=== PATIENT | female | born 1945 | race Caucasian/White ===

== ENCOUNTER 2018-10-25 05:50 | Outpatient (CLI) | payer MEDICARE, MEDICAID ==
[~2018-10-25] VITALS: Ht 162.6 cm; Wt 81.6 kg
[~2018-10-25 05:50] MED LIST: AC500T PO; ASP81CT PO; ASPI-84; BNZT1T PO; CARB100T PO; CRB200T PO; DCS100C PO; DIAZ5TAB3 PO; DIVA500T15; DOCU100C PO; DZPM2T; FAMO20TA5 PO; FLUP1TAB PO; FURO40TA4 PO; GUAI100S PO; HYDR-2890 PO; IBP200T; KCL20TCR PO; KETO-22 PO; LEVO500T69 PO; LISI10TA PO; MAG355OR55 PO; MAGN-47 PO; MIRT15TA6 PO; MIRT30TA6 PO; MTP50T PO; MULT-974 PO; NF-CARBAMX PO; NTR.4SL SL; PANT40TA PO; POLY119P; PRO-STAT PO; PROLIXIN; RNT150T; SCR1T1; SUCR1TAB PO
[2018-10-25] MEDS ORDERED: FURO40TA4 PO (10:18)
[2018-10-25] MEDS ORDERED: LORA-405 PO (10:18)
[2018-10-25] MEDS ORDERED: IBUP-1773 PO (10:18)
[2018-10-25] MEDS ORDERED: FLUP1TAB PO (10:18)
[2018-10-25] MEDS ORDERED: ASPI-999 PO (10:18)
[2018-10-25] MEDS ORDERED: ACET-93 PO (10:18)
[2018-10-25] MEDS ORDERED: BENZ0.5T42 PO (10:18)
[2018-10-25] MEDS ORDERED: MENT118G TP (10:18)
[2018-10-25] MEDS ORDERED: CRAN500T2 PO (10:18)
[2018-10-25] MEDS ORDERED: DOCU100C37 PO (10:18)
[2018-10-25] MEDS ORDERED: MIRT15TA6 PO (11:08)
[2018-10-25] MEDS ORDERED: LISI10TA2 PO (11:08)
[2018-10-25] MEDS ORDERED: MAGN400O7 PO (11:08)
[2018-10-25] MEDS ORDERED: MAG30ORA2 PO (11:08)
[2018-10-25] MEDS ORDERED: MULT-178 PO (11:08)
[2018-10-25] MEDS ORDERED: METO50TA15 PO (11:08)
[2018-10-25] MEDS ORDERED: LORA10TA7 PO (11:08)
[2018-10-25] MEDS ORDERED: NITR0.4T39 SL (13:08)
[2018-10-25] MEDS ORDERED: MV-M1TAB38 PO (13:08)
[2018-10-25] MEDS ORDERED: METO-387 PO (13:08)
[2018-10-25] MEDS ORDERED: OMEG1CAP58 PO (13:08)
[2018-10-25] MEDS ORDERED: POTA-51 PO (13:08)
[2018-10-25] MEDS ORDERED: CARB100T48 PO ×2 (13:08)
== END 2018-10-25 14:41 | disposition home or self-care (01) ==
LOC: PREOP 05:50
PROVIDERS: ATTEND Specialist
DX: Z01.818 Encounter for other preprocedural examination (principal)

== ENCOUNTER 2018-10-27 07:42 | Day surgery (SDC) | payer MEDICARE, MEDICAID ==
[~2018-10-27] VITALS: Ht 162.6 cm; Wt 81.6 kg
[~2018-10-27 07:42] MED LIST changes: +ACET-93 PO; +ASPI-999 PO; +BENZ0.5T42 PO; +CARB100T48 PO; +CRAN500T2 PO; +DOCU100C37 PO; +IBUP-1773 PO; +LISI10TA2 PO; +LORA-405 PO; +LORA10TA7 PO; +MAG30ORA2 PO; +MAGN400O7 PO; +MENT118G TP; +METO-387 PO; +METO50TA15 PO; +MULT-178 PO; +MV-M1TAB38 PO; +NITR0.4T39 SL; +OMEG1CAP58 PO; +POTA-51 PO
--- OUTSIDE RECORDS SUMMARY | 2018-10-27 07:46 | XMS REPORT | Continuity of Care Document ---
Author Author [facility] Organization [facility] Address Unknown Phone Unavailable Care Team Providers Care Grievance Manager Name Role Phone WALDO EPPS DO PP Insurance Providers Payer Name Policy Number Subscriber Name Relationship Medicaid [place] [id number] Jill Oseguera Self / Same As Patient [employer] Medicare [id number] Jill Oseguera Self / Same As Patient Advance Directives Directive Response Recorded Date Advance Directives N 08/23/13 2:26pm Health Care Power of Physician Industrial Y 08/23/13 2:26pm Organ Donor N 08/23/13 2:26pm Problems No Known Problems or Medical conditions. Social History History Response Recorded Date/Time Alcohol Use Denies Use 08/23/13 2:26pm Recreational Drug Use N 08/23/13 2:26pm Sexually Transmitted Disease N 08/23/13 2 :26pm Allergies, Adverse Reactions, Alerts Allergen Type Severity Reaction Last Updated No Known Drug Allergies 11/03/08 [place] Allergy Mild 01/22/10 quetiapine Allergy Mild 01/22/10 Medications Medication Dose Units Route Sig Qty Days Levofloxacin (Levaquin 500 Mg) 1 Each PO DAILY 10 Diazepam (Diazepam 5 Mg) 5 Mg PO DAILY PRN Carbamazepine (Tegretol Xr) 300 Mg PO HS Lisinopril (Prinivil) 10 Mg PO DAILY Multivitamin (Multi Vitamin Daily) 1 Tab PO DAILY Famotidine (Pepcid) 20 Mg PO DAILY Aspirin (Baby Aspirin Chewable Tablet) 81 Mg PO DAILY Docusate Sodium (Colace) 100 Mg PO BID [Pro-Stat] 30 Ml PO HS Carbamazepine (Tegretol Xr) 100 Mg PO DAILY Mag Hydrox/Al Hydrox/Simeth (Mylanta Liq) 30 Ml PO Q4H PRN Nitroglycerin (Nitrostat) 0 SL PRN Magnesium Hydroxide (Milk Of Magnesia) 30 Ml PO BID PRN Acetaminophen (Tylenol) 1000 Mg PO Q6H PRN Guaifenesin (Robitussin) 10 Ml PO Q4H PRN Ketorolac Tromethamine (Toradol) 20 Mg PO UD PRN Mirtazapine (Mirtazapine 15 Mg) 15 Mg PO HS Sucralfate 1 G PO BID Pantoprazole Sodium 40 Mg PO DAILY Potassium Chloride (Klor-Con 20 Tab) 20 Meq PO BID Fluphenazine Hcl 2 Mg PO HS Docusate Sodium (Docusate Calcium) 100 Mg PO BID PRN Diazepam 2.5 Mg PO BID PRN Benztropine Mesylate (Cogentin Po) 1 Mg PO TID Metoprolol Tartrate (Metoprolol Tartrate 50 Mg) 50 Mg PO BID Furosemide 40 Mg PO DAILY Hydrocodone Bit/Acetaminophen (Hydrocodon-Acetaminophn 10-325) 1 Each PO PRN Sucralfate (Carafate) [Prolixin] Ibuprofen (Motrin) Polyethylene Glycol (Miralax Btl) Divalproex Sodium (Divalproex Sodium Er) Ranitidine HCl (Zantac 150 Mg) Immunizations Name Given Type Date of Pneumonia Vaccine 08/30/11 H Response Recorded Date/Time Status not known Unknown Results No Known Relevant Diagnostic Tests, Laboratory Data and/or Discharge Summary. Procedures Procedure Code Date ESOPHAGOGASTRODUODENOSCOPY [EGD] W/CLOSED BIOPSY 45.16 11/06/08 OTHER LOCAL DESTRUC SKIN 86.3 11/06/08 DEBRIDEMENT OF NAIL, NAIL BED OR NAIL FOLD 86.27 11/07/08 NONEXCIS DEBRID OF WOUND, INFECT, OR BURN 86.28 11/07/08 CYSTOSCOPY AND TREATMENT 17082 03/06/09 EXAM OF VAGINA W/SCOPE [id number] 03/06/09 DRAIN BL W/CATH INSERTION [id number] 01/29/10 CYSTOSCOPY 00476 01/29/10 Encounters Encounter Location Date/Time Departed Emergency Room [facility] 1:34pm Discharged Inpatient [facility] 12: 00am
[2018-10-27 08:05] VITALS: BP 188/89
[2018-10-27] MEDS: TETRACAINE 0.5% OPHTH SOLN 4 ML BTL (SINGLE DOSE ONLY) OU PRN ×4 (08:08→08:24)
[2018-10-27] MEDS: PHENYLEPHRINE 10% OPHTH (NEO-SYN) 5 ML BTL OU PRN ×3 (08:13→08:24)
[2018-10-27] MEDS: TROPICAMIDE 1% OPH SOLN (MYDRIACYL) 15 ML BTL OU PRN ×3 (08:13→08:24)
--- NOTE | 2018-10-27 09:02 | Ophthalmologist Pre-Op Note ---
Pre-Operative Progress Note H&P Reviewed The H&P was reviewed, patient examined and no changes noted. Date H&P Reviewed: Oct 27, 2018 Time H&P Reviewed: 09:02 Pre-Op Dx Secondary Cataract, Right Eye TWYLA LOZANO MD Oct 27, 2018 09:02
[2018-10-27 09:20] VITALS: BP 188/89
--- NOTE | 2018-10-27 09:37 | Ophthalmology Operative Report ---
YAG Capsulotomy PREOPERATIVE DIAGNOSIS: Secondary Cataract Right Eye POSTOPERATIVE DIAGNOSIS: Secondary Cataract Right Eye PROCEDURE: YAG Capsulotomy, right eye SURGEON: Jason Lozano ANESTHESIA: Topical anesthesia COMPLICATIONS: None ESTIMATED BLOOD LOSS: Minimal DESCRIPTION OF PROCEDURE: After proper informed consent was obtained, the patient's, a 73 female, right eye received one drop of Tropicamide and one drop of Tetracaine. The patient was then placed at the YAG laser and using a power of [3.1 ] millijoules and [ 26] bursts were used to fashion a central capsulotomy. The patient tolerated the procedure well without complications and the patient's pressure was [ 17] shortly after the laser. JASON LOZANO MD Oct 27, 2018 09:37
== END 2018-10-27 09:20 | disposition home or self-care (01) ==
LOC: SDC 07:42
PROVIDERS: ATTEND Specialist
DX: H26.491 Other secondary cataract, right eye (principal); H26.40 Unspecified secondary cataract; Z80.0 Family history of malignant neoplasm of digestive organs; I10 Essential (primary) hypertension; F31.9 Bipolar disorder, unspecified; G30.9 Alzheimer's disease, unspecified; E11.9 Type 2 diabetes mellitus without complications; G20 Parkinson's disease; F41.9 Anxiety disorder, unspecified; F25.9 Schizoaffective disorder, unspecified

== ENCOUNTER 2019-04-28 14:54 | Emergency (ER) | payer MEDICARE, MEDICAID ==
[~2019-04-28] VITALS: Ht 164.5 cm; Wt 95.7 kg
--- NOTE | 2019-04-28 15:15 | NUR ---
supra pubic placed by obie wade
[2019-04-28] MEDS ORDERED: ALPRAZolam 0.5 MG (XANAX) TAB PO SCH (15:30)
[2019-04-28] MEDS ORDERED: LIDOCAINE UROJET 2% GEL 10 ML PKG TOP ONE (15:30)
--- NOTE | 2019-04-28 15:32 | ED GU-Female ---
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 Timing/Duration: just prior to arrival Severity/Quality: moderate Location: unknown Activities at Onset: none Associated Symptoms: urinary frequency Allergies and Home Medications Allergies Coded Allergies: lithium (Unverified Allergy, Mild, 01/22/10) quetiapine (Unverified Allergy, Mild, 01/22/10) Home Medications Acetaminophen 500 Mg Tablet, 1,000 MG PO Q6H PRN for pain/temperature, (Reported) take 2 (500mg) tabs Aspirin 81 Mg Tab.chew, 81 MG PO DAILY, (Reported) Benztropine Mesylate 0.5 Mg Tablet, 0.5 MG PO DAILY, (Reported) Carbamazepine 100 Mg Tab.er.12h, 100 MG PO DAILY, (Reported) Carbamazepine 100 Mg Tab.er.12h, 300 MG PO HS, (Reported) take 3 (100mg) tabs Cranberry Extract Unknown Strength Tablet, 1 TAB PO TID, (Reported) Docusate Sodium 100 Mg Capsule, 100 MG PO BID, (Reported) Fluphenazine HCl 1 Mg Tablet, 1 MG PO HS, (Reported) Furosemide 40 Mg Tablet, 40 MG PO DAILY, (Reported) Ibuprofen 600 Mg Tablet, 600 MG PO Q8H PRN for PAIN, (Reported) Lisinopril 10 Mg Tablet, 10 MG PO DAILY, (Reported) Loratadine 10 Mg Tablet, 10 MG PO DAILY, (Reported) Lorazepam 1 Mg Tablet, 1 MG PO UD PRN for before catheter change, (Reported) Mag Hydrox/Al Hydrox/Simeth 30 Ml Oral.susp, 30 ML PO Q4H PRN for INDIGESTION, (Reported) Magnesium Hydroxide 400 Mg/5 Ml Oral.susp, 1,200 MG PO DAILY PRN for CONSTIPATION-1ST LINE, (Reported) Menthol 118 Ml Gel..ml., 4 ML TP Q6H PRN for pain in hips, (Reported) Metoprolol Succinate 25 Mg Tab.er.24h, 25 MG PO DAILY, (Reported) Metoprolol Tartrate 50 Mg Tablet, 50 MG PO BID, (Reported) Mirtazapine 15 Mg Tablet, 15 MG PO HS, (Reported) Multivitamin 1 Each Tablet, 1 EACH PO DAILY, (Reported) Mv-Mn/FA/Vit K/Lycop/Lut/Zeaxa 1 Each Tablet, 1 EACH PO DAILY, (Reported) Nitroglycerin 0.4 Mg Tab.subl, 0.4 MG SL UD PRN for CHEST PAIN, (Reported) [place]-3 Fatty Acids/Fish Oil 1 Each Capsule, 1,000 MG PO DAILY, (Reported) Potassium Chloride 20 Meq Tablet.er, 20 MEQ PO BID, (Reported) Patient Home Medication List Home Medication List Reviewed: Yes Review of Systems Review of Systems Constitutional: see HPI EENTM: see HPI Respiratory: no symptoms reported Cardiovascular: no symptoms reported Genitourinary: see HPI Musculoskeletal: no symptoms reported Skin: no symptoms reported Psychiatric/Neurological: No Symptoms Reported Endocrine: No Symptoms Reported Hematologic/Lymphatic: No Symptoms Reported Past Jmcdqoj-Atgiei-Nyotul Hx Patient Social History Alcohol Use: Denies Use Recreational Drug Use: No Smoking Status: Never a Smoker 2nd Hand Smoke Exposure: No Recent Foreign Travel: No Contact w/Someone Who Travel: No Recent Infectious Disease Expo: No Immunizations Up To Date Date of Pneumonia Vaccine: Aug 30, 2011 Past Medical History Surgeries: Yes (SUPRAPUBIC CATHETER PLACEMENT--OTHER SURGERIES ARE UNKNOWN) Respiratory: No Cardiac: Yes (VENTRICULAR TACHYCARDIA) Neurological: Yes (?MR?) Sexually Transmitted Disease: No UTI-Chronic Gastrointestinal: Yes (GASTRITIS) Gastroesophageal Reflux, Chronic Constipation Musculoskeletal: Yes (FREQUENT FALLS. CHRONIC GENERALIZED PAIN) Arthritis Endocrine: Yes Diabetes, Non-Insulin dep Cancer: No Psychosocial: Yes Anxiety, Bipolar, Schizophrenia Integumentary: No Blood Disorders: No Physical Exam Vital Signs Vital Signs - First Documented 04/28/19 15:06 Temp 98.1 Pulse 82 Resp 15 B/P (MAP) 149/97 (114) Pulse Ox 94 O2 Delivery Room Air Capillary Refill : Less Than 3 Seconds Height, Weight, BMI Height: 5'4.75" Weight: 211lbs. 0.0oz. 95.950411yb; BMI Method:Stated General Appearance: WD/WN, no apparent distress Gastrointestinal: normal bowel sounds, non tender, soft Neurologic/Psychiatric: alert, normal mood/affect, oriented x 3 Skin: normal color, warm/dry I was unable to replace a 16 or 18 or 14 Vietnamese suprapubic catheter. Per her request we then gave E alprazolam 0.5 mg for sedation. We also anesthetized the tract with your inject lidocaine. I then used the [place] sounds to dilate the tract was able to finally get a 12 Vietnamese Barbour catheter placed with return of about 200 mL of clear yellow urine. Progress/Results/Core Measures Suspected Sepsis Recent Fever Within 48 Hours: No Infection Criteria Present: None New/Unexplained Altered Menta: No Sepsis Screen: No Definite Risk SIRS Temperature:98.1 Pulse: 82 Respiratory Rate: 15 Blood Pressure 149 /97 Mean: 114 Results/Orders My Orders Orders - DEEPTHI LAN APRN Alprazolam Tablet (Xanax Tablet) (04/28/19 15:30) Lidocaine 2% (Urojet) (Xylocaine Urojet) (04/28/19 15:30) Medications Given in ED Current Medications Medications Dose Ordered Sig/Stanley Route Start Time Stop Time Status Last Admin Dose Admin Lidocaine HCl 10 ml ONCE ONCE TOP 04/28/19 15:30 04/28/19 15:31 DC 04/28/19 15:36 10 ML Vital Signs/I&O 04/28/19 15:06 Temp 98.1 Pulse 82 Resp 15 B/P (MAP) 149/97 (114) Pulse Ox 94 O2 Delivery Room Air Capillary Refill : Less Than 3 Seconds Blood Pressure Mean: 114 Departure Impression Primary Impression: suprapubic catheter replacement Disposition: 01 HOME, SELF-CARE Condition: Improved Departure-Patient Inst. Decision time for Depature: 15:47 Referrals: ANNEMARIE LOPEZ MD (PCP) Primary Care Physician Patient Instructions: Barbour Catheter, Female Add. Discharge Instructions: 1. Return to ER for any concerns 2. Follow-up with your doctor next week 3. All discharge instructions reviewed with patient and/or family. Voiced understanding. DEEPTHI LAN APRN April 28, 2019 15:32
[2019-04-28 15:56] VITALS: BP 149/97
== END 2019-04-28 15:55 | disposition home or self-care (01) ==
LOC: EDUNIT# 14:54 → ER 14:55
DX: T83.028A Displacement of other urinary catheter, initial encounter (principal); K21.9 Gastro-esophageal reflux disease without esophagitis; E11.9 Type 2 diabetes mellitus without complications; F41.9 Anxiety disorder, unspecified; F31.9 Bipolar disorder, unspecified; F20.9 Schizophrenia, unspecified; Z91.81 History of falling; Z87.19 Personal history of other diseases of the digestive system; Z88.8 Allergy status to other drugs, medicaments and biological substances; Z79.82 Long term (current) use of aspirin; Z98.890 Other specified postprocedural states; Z87.440 Personal history of urinary (tract) infections
CPT/HCPCS: 99283

== ENCOUNTER 2020-09-15 20:50 | Emergency (ER) | payer MEDICARE, MEDICAID ==
[~2020-09-15] VITALS: Ht 162 cm; Wt 70.0 kg
[~2020-09-15 20:50] MED LIST changes: -METO-387 PO; +MTP25TSR PO
[2020-09-15 21:11] LABS: BASOPHILS % (AUTO) 0 % (0-10); EOSINOPHILS # (AUTO) 0.2 10^3/uL (0.0-0.3); EOSINOPHILS % (AUTO) 3 % (0-10); HEMATOCRIT 38 % (35-52); HEMOGLOBIN 12.3 g/dL (11.5-16.0); LYMPHOCYTES % (AUTO) 19 % (12-44); MEAN CORPUSCULAR HEMOGLOBIN 30 pg (25-34); MEAN CORPUSCULAR HGB CONC 32 g/dL (32-36); MEAN CORPUSCULAR VOLUME 92 fL (80-99); MEAN PLATELET VOLUME 10.2 fL (9.0-12.2); MONOCYTES # (AUTO) 0.4 10^3/uL (0.0-1.0); MONOCYTES % (AUTO) 7 % (0-12); NEUTROPHILS # (AUTO) 3.8 10^3/uL (1.8-7.8); NEUTROPHILS % (AUTO) 71 % (42-75); PLATELET COUNT 208 10^3/uL (130-400); WHITE BLOOD COUNT 5.4 10^3/uL (4.3-11.0)
--- NOTE | 2020-09-15 21:13 | ED General ---
General Stated Complaint: FALL Source of Information: EMS Exam Limitations: No Limitations History of Present Illness Date Seen by Provider: Sep 15, 2020 Time Seen by Provider: 21:11 Initial Comments To ER by EMS from home [facility] with reports of a fall. She initially fell and she is not sure why but she did strike her head. She seemed t o be fine and she was taken to bed. Staff then entered the room and noticed her on the floor after an apparent unwitnessed fall. Upon EMS arrival she was unresponsive even to sternal rub. Didn't move any extremity. On the way here they state "a light switch turned on" and she is now talking and moving all extremities. Timing/Duration: 4-6 Hours Severity: Moderate Associated Systoms: Denies Symptoms Allergies and Home Medications Allergies Coded Allergies: lithium (Unverified Allergy, Mild, 01/22/10) quetiapine (Unverified Allergy, Mild, 01/22/10) Home Medications Acetaminophen 500 Mg Tablet, 1,000 MG PO Q6H PRN for pain/temperature, (Reported) take 2 (500mg) tabs Aspirin 81 Mg Tab.chew, 81 MG PO DAILY, (Reported) Benztropine Mesylate 0.5 Mg Tablet, 0.5 MG PO DAILY, (Reported) Carbamazepine 100 Mg Tab.er.12h, 100 MG PO DAILY, (Reported) Carbamazepine 100 Mg Tab.er.12h, 300 MG PO HS, (Reported) take 3 (100mg) tabs Cranberry Extract Unknown Strength Tablet, 1 TAB PO TID, (Reported) Docusate Sodium 100 Mg Capsule, 100 MG PO BID, (Reported) Fluphenazine HCl 1 Mg Tablet, 1 MG PO HS, (Reported) Furosemide 40 Mg Tablet, 40 MG PO DAILY, (Reported) Ibuprofen 600 Mg Tablet, 600 MG PO Q8H PRN for PAIN, (Reported) Lisinopril 10 Mg Tablet, 10 MG PO DAILY, (Reported) Loratadine 10 Mg Tablet, 10 MG PO DAILY, (Reported) Lorazepam 1 Mg Tablet, 1 MG PO UD PRN for before catheter change, (Reported) Mag Hydrox/Al Hydrox/Simeth 30 Ml Oral.susp, 30 ML PO Q4H PRN for INDIGESTION, (Reported) Magnesium Hydroxide 400 Mg/5 Ml Oral.susp, 1,200 MG PO DAILY PRN for CON STIPATION-1ST LINE, (Reported) Menthol 118 Ml Gel..ml., 4 ML TP Q6H PRN for pain in hips, (Reported) Metoprolol Succinate 25 Mg Tab.er.24h, 25 MG PO DAILY, (Reported) Metoprolol Tartrate 50 Mg Tablet, 50 MG PO BID, (Reported) Mirtazapine 15 Mg Tablet, 15 MG PO HS, (Reported) Multivitamin 1 Each Tablet, 1 EACH PO DAILY, (Reported) Mv-Mn/FA/Vit K/Lycop/Lut/Zeaxa 1 Each Tablet, 1 EACH PO DAILY, (Reported) Nitroglycerin 0.4 Mg Tab.subl, 0.4 MG SL UD PRN for CHEST PAIN, (Reported) [place]-3 Fatty Acids/Fish Oil 1 Each Capsule, 1,000 MG PO DAILY, (Reported) Potassium Chloride 20 Meq Tablet.er, 20 MEQ PO BID, (Reported) Patient Home Medication List Home Medication List Reviewed: Yes Review of Systems Review of Systems Constitutional: see HPI EENTM: see HPI Respiratory: no symptoms reported Cardiovascular: no symptoms reported Genitourinary: no symptoms reported Musculoskeletal: no symptoms reported Skin: no symptoms reported Psychiatric/Neurological: No Symptoms Reported Hematologic/Lymphatic: No Symptoms Reported Past Ijnaeqe-Dqfsmr-Omrtez Hx Patient Social History 2nd Hand Smoke Exposure: No Immunizations Up To Date Date of Pneumonia Vaccine: Aug 30, 2011 Past Medical History Surgeries: Yes (SUPRAPUBIC CATHETER PLACEMENT--OTHER SURGERIES ARE UNKNOWN) Respiratory: No Cardiac: Yes (VENTRICULAR TACHYCARDIA) Neurological: Yes (?MR?) Sexually Transmitted Disease: No UTI-Chronic Gastrointestinal: Yes (GASTRITIS) Gastroesophageal Reflux, Chronic Constipation Musculoskeletal: Yes (FREQUENT FALLS. CHRONIC GENERALIZED PAIN) Arthritis Endocrine: Yes Diabetes, Non-Insulin dep Cancer: No Psychosocial: Yes Anxiety, Bipolar, Schizophrenia Integumentary: No Blood Disorders: No Physical Exam Vital Signs Capillary Refill : Height, Weight, BMI Height: 5'4.75" Weight: 211lbs. 0.0oz. 95.168239ux; BMI Method:Stated General Appearance: No Apparent Distress, WD/WN Eyes: Bilateral Eye Normal Inspection, Bilateral Eye PERRL, Bilateral Eye EOMI Respiratory: No Accessory Muscle Use, No Respiratory Distress Cardiovascular: Regular Rate, Rhythm, Normal Peripheral Pulses Gastrointestinal: Normal Bowel Sounds, Non Tender, Soft Extremity: Normal Capillary Refill, Normal Inspection Neurologic/Psychiatric: Alert, Oriented x3 Skin: Normal Color, Warm/Dry Progress/Results/Core Measures Suspected Sepsis SIRS Temperature: Pulse: Respiratory Rate: Laboratory Tests 09/15/20 20:55: White Blood Count 5.4 Blood Pressure / Mean: Laboratory Tests 09/15/20 20:55: Creatinine 0.94, INR Comment 0.9, Platelet Count 208, Total Bilirubin 0.2 Results/Orders Lab Results Laboratory Tests Test 09/15/20 20:55 09/15/20 22:07 Range/Units White Blood Count 5.4 4.3-11.0 10^3/uL Red Blood Count 4.17 3.80-5.11 10^6/uL Hemoglobin 12.3 11.5-16.0 g/dL Hematocrit 38 35-52 % Mean Corpuscular Volume 92 80-99 fL Mean Corpuscular Hemoglobin 30 25-34 pg Mean Corpuscular Hemoglobin Concent 32 32-36 g/dL Red Cell Distribution Width 13.3 10.0-14.5 % Platelet Count 208 130-400 10^3/uL Mean Platelet Volume 10.2 9.0-12.2 fL Immature Granulocyte % (Auto) 0 % Neutrophils (%) (Auto) 71 42-75 % Lymphocytes (%) (Auto) 19 12-44 % Monocytes (%) (Auto) 7 0-12 % Eosinophils (%) (Auto) 3 0-10 % Basophils (%) (Auto) 0 0-10 % Neutrophils # (Auto) 3.8 1.8-7.8 10^3/uL Lymphocytes # (Auto) 1.0 1.0-4.0 10^3/uL Monocytes # (Auto) 0.4 0.0-1.0 10^3/uL Eosinophils # (Auto) 0.2 0.0-0.3 10^3/uL Basophils # (Auto) 0.0 0.0-0.1 10^3/uL Immature Granulocyte # (Auto) 0.0 0.0-0.1 10^3/uL Prothrombin Time 12.5 12.2-14.7 SEC INR Comment 0.9 0.8-1.4 Activated Partial Thromboplast Time 28 24-35 SEC Sodium Level 141 135-145 MMOL/L Potassium Level 3.8 3.6-5.0 MMOL/L Chloride Level 104 98-107 MMOL/L Carbon Dioxide Level 26 21-32 MMOL/L Anion Gap 11 5-14 MMOL/L Blood Urea Nitrogen 12 7-18 MG/DL Creatinine 0.94 0.60-1.30 MG/DL Estimat Glomerular Filtration Rate 59 BUN/Creatinine Ratio 13 Glucose Level 153 H 70-105 MG/DL Calcium Level 8.6 8.5-10.1 MG/DL Corrected Calcium 8.8 8.5-10.1 MG/DL Total Bilirubin 0.2 0.1-1.0 MG/DL Aspartate Amino Transf (AST/SGOT) 10 5-34 U/L Alanine Aminotransferase (ALT/SGPT) 8 0-55 U/L Alkaline Phosphatase 126 40-136 U/L Total Protein 6.5 6.4-8.2 GM/DL Albumin 3.7 3.2-4.5 GM/DL Urine Color YELLOW Urine Clarity CLEAR Urine pH 5.5 5-9 Urine Specific [place] <=1.005 1.016-1.022 Urine Protein NEGATIVE NEGATIVE Urine Glucose (UA) NEGATIVE NEGATIVE Urine Ketones NEGATIVE NEGATIVE Urine Nitrite POSITIVE H NEGATIVE Urine Bilirubin NEGATIVE NEGATIVE Urine Urobilinogen 0.2 < = 1.0 MG/DL Urine Leukocyte Esterase TRACE H NEGATIVE Urine RBC (Auto) NEGATIVE NEGATIVE Urine RBC NONE /HPF Urine WBC 0-2 /HPF Urine Squamous Epithelial Cells RARE /HPF Urine Crystals NONE /LPF Urine Bacteria LARGE H /HPF Urine Casts NONE /LPF Urine Mucus NEGATIVE /LPF Urine Culture Indicated YES My Orders Orders - DEEPTHI LAN APRN Cbc With Automated Diff (09/15/20 21:06) Comprehensive Metabolic Panel (09/15/20 21:06) Protime With Inr (09/15/20 21:06) Partial Thromboplastin Time (09/15/20 21:06) Ct Head/Cervical Spine Wo (09/15/20 21:06) Pelvis (09/15/20 21:06) Ua Culture If Indicated (09/15/20 21:11) Ct Angio Head/Neck (09/15/20 21:30) Urine Culture (09/15/20 22:07) Ceftriaxone For Iv Use (Rocephin For I (09/15/20 22:30) Iohexol Injection (Omnipaque 350 Mg/Ml 1 (09/15/20 22:45) Ns (Ivpb) (Sodium Chloride 0.9% Ivpb Bag (09/15/20 22:45) Vital Signs/I&O Capillary Refill : Diagnostic Imaging Diagonstic Imaging: Xray Comments NAME: RICHARD OSEGUERA MED REC#: [id number] PT STATUS: REG ER : 1945 PHYSICIAN: EDEPTHI LAN APRN ADMIT DATE: 09/15/20/ER Signed Date of Exam:09/15/20 PELVIS INDICATION: Injury from a fall. EXAMINATION: Pelvis. FINDINGS: AP view of the pelvis shows no fracture or dislocation. There is a calcified uterine fibroid seen incidentally. IMPRESSION: Negative pelvis. Dictated by: Dictated on workstation # [id number] Dict: 09/15/202130 Trans: 09/15/202131 [facility] [id number] Interpreted by: JIMI TO MD Electronically signed by: JIMI TO MD 09/15/202131 NAME: RICHARD OSEGUERA MED REC#: [id number] PT STATUS: REG ER : 1945 PHYSICIAN: DEEPTHI LAN APRN ADMIT DATE: 09/15/20/ER Signed Date of Exam:09/15/20 CT HEAD/CERVICAL SPINE WO PROCEDURE: CT head and CT cervical spine without contrast. TECHNIQUE: Multiple contiguous axial images were obtained through the brain and cervical spine without the use of intravenous contrast. Sagittal and coronal reformations through the cervical spine were then performed. Auto Exposure Controls were utilized during the CT exam to meet ALARA standards for radiation dose reduction. INDICATION: Injury from a fall. FINDINGS: CT head: The ventricles are normal in size, shape and position. There is no mass or hemorrhage. There is no extra-axial fluid collection. IMPRESSION: Negative CT head. CT cervical spine: Vertebral body height and alignment appears normal. There is narrowing of each of the intervertebral disc spaces. There are degenerative changes of the uncovertebral joints. There is no fracture or misalignment. IMPRESSION: Diffuse degenerative changes of the discs and uncovertebral joints of the cervical spine. No acute abnormality is seen. Dictated by: Dictated on workstation # [id number] Dict: 09/15/202129 Trans: 09/15/202138 [facility] [phone] Interpreted by: JIMI TO MD Electronically signed by: JIMI TO MD 09/15/202138 Departure Impression Primary Impression: UTI (urinary tract infection) Qualified Codes: N39.0 - Urinary tract infection, site not specified Additional Impression: Fall Qualified Codes: W19.XXXA - Unspecified fall, initial encounter Disposition: HOME, SELF-CARE Condition: Stable Admissions Decision to Admit Reason: Admit from ER (General) Decision to Admit/Date: Sep 15, 2020 Time/Decision to Admit Time: 22:38 Departure-Patient Inst. Decision time for Depature: 22:39 Referrals: ANNEMARIE LOPEZ MD (PCP/Family) Primary Care Physician Patient Instructions: Preventing Falls, Urinary Tract Infections in Adults Add. Discharge Instructions: 1. Follow-up with her doctor next week 2. Antibiotics as directed. Return to ER for any worsening. Scripts Cefuroxime Axetil (Cefuroxime) 250 Mg Tablet 250 MG PO BID, #14 TAB Prov: DEEPTHI LAN FIELD RING ASSEMBLER 09/15/20 DEEPTHI LAN APRN Sep 15, 2020 21:13
[2020-09-15 21:19] LABS: ALBUMIN 3.7 GM/DL (3.2-4.5); POTASSIUM 3.8 MMOL/L (3.6-5.0)
[2020-09-15 21:20] LABS: CALCIUM 8.6 MG/DL (8.5-10.1)
[2020-09-15 21:21] LABS: INR 0.9 (0.8-1.4); PROTHROMBIN TIME PATIENT 12.5 SEC (12.2-14.7); TOTAL PROTEIN 6.5 GM/DL (6.4-8.2)
[2020-09-15 21:23] LABS: BILIRUBIN,TOTAL 0.2 MG/DL (0.1-1.0)
[2020-09-15 21:25] LABS: CREATININE SERUM 0.94 MG/DL (0.60-1.30)
--- NOTE | 2020-09-15 21:34 | Diagnostic Imaging Report ---
INDICATION: Injury from a fall. EXAMINATION: Pelvis. FINDINGS: AP view of the pelvis shows no fracture or dislocation. There is a calcified uterine fibroid seen incidentally. IMPRESSION: Negative pelvis. Dictated by: Dictated on workstation # [id number]
--- NOTE | 2020-09-15 21:35 | Diagnostic Imaging Report ---
PROCEDURE: CT head and CT cervical spine without contrast. TECHNIQUE: Multiple contiguous axial images were obtained through the brain and cervical spine without the use of intravenous contrast. Sagittal and coronal reformations through the cervical spine were then performed. Auto Exposure Controls were utilized during the CT exam to meet ALARA standards for radiation dose reduction. INDICATION: Injury from a fall. FINDINGS: CT head: The ventricles are normal in size, shape and position. There is no mass or hemorrhage. There is no extra-axial fluid collection. IMPRESSION: Negative CT head. CT cervical spine: Vertebral body height and alignment appears normal. There is narrowing of each of the intervertebral disc spaces. There are degenerative changes of the uncovertebral joints. There is no fracture or misalignment. IMPRESSION: Diffuse degenerative changes of the discs and uncovertebral joints of the cervical spine. No acute abnormality is seen. Dictated by: Dictated on workstation # [id number]
[2020-09-15 22:13] LABS: BILIRUBIN,URINE NEGATIVE (NEGATIVE); CLARITY,URINE CLEAR; COLOR,URINE YELLOW; GLUCOSE, URINE (UA) NEGATIVE (NEGATIVE); KETONES,URINE NEGATIVE (NEGATIVE); LEUKOCYTE ESTERASE ,URINE TRACE (NEGATIVE); NITRITE,URINE POSITIVE (NEGATIVE); PH,URINE 5.5 (5-9); PROTEIN,URINE NEGATIVE (NEGATIVE)
--- NOTE | 2020-09-15 22:13 | NUR ---
UPDATE GIVEN TO MARIANO LEUNG.
[2020-09-15 22:20] LABS: BACTERIA,URINE LARGE /HPF; SQUAMOUS EPITHELIAL CELL,UR RARE /HPF; WBC,URINE 0-2 /HPF
[2020-09-15] MEDS ORDERED: cefTRIAXone FOR IV USE 1,000 MG in WATER (STERILE) FOR INJECTION 10 ML IV ONE (22:30)
[2020-09-15] MEDS ORDERED: CEFU250T80 PO (22:40)
[2020-09-15] MEDS ORDERED: IOHEXOL 350 MG/ML 100 ML (OMNIPAQUE 350) VIAL IV ONE (22:45)
[2020-09-15] MEDS ORDERED: NS 100 ML (IVPB) BAG IV ONE (22:45)
--- NOTE | 2020-09-15 22:55 | NUR ---
DEEPTHI LUZ PROVIDER FOR THIS PATIETN CALLED AND DISCUSSED PATIENT CARES AND TREATMENTS WITH FAMILY (MARIANO) AND LET HER KNOW SHE IS BEING DISCHARGED BACK TO [facility].
[2020-09-16 00:20] VITALS: BP 133/86
--- NOTE | 2020-09-16 05:47 | Diagnostic Imaging Report ---
PROCEDURE: CT angiography of the head and CT angiography of the neck with and without contrast. TECHNIQUE: Contiguous noncontrast images were obtained from the skull base through the vertex. After intravenous contrast administration, helical CT angiography of the neck was performed. Source data was reformatted into 3D MIP projections. Delayed post contrast acquisition was also obtained. Auto Exposure Controls were utilized during the CT exam to meet ALARA standards for radiation dose reduction. INDICATION: Altered mental status. FINDINGS: The ventricles and sulci are mildly prominent. There is no hydrocephalus. There is no midline shift. There is no mass, hemorrhage or extra-axial fluid collection. The calvarium is intact. Sinuses and mastoid air cells are clear. There are no proximal intracranial branch occlusions, vascular malformations or aneurysms. Specifically, there is no large vessel occlusion. The lung apices are clear. Aortic arch is unremarkable. There is normal branching pattern of the aorta. The common carotid artery, internal carotid artery or vertebral arteries are widely patent. There is no dissection, stenosis or occlusion. The internal carotid arteries are somewhat tortuous. The visualized intracranial structures are unremarkable. Sinuses and mastoid air cells are clear. The nasopharyngeal, oropharyngeal and hypopharyngeal tissues are symmetrical without mass effect. The parotid, submandibular and thyroid glands are normal in appearance. The prevertebral soft tissues are within normal limits. Epiglottis is unremarkable. There is no pathologically enlarged adenopathy or mass in the neck. There are marked degenerative changes in the cervical spine. IMPRESSION: No acute intracranial abnormality. Unremarkable CTA of the [place] of [place]. No evidence of dissection, stenosis or occlusion in the major vessels of the neck. The internal carotid arteries are somewhat tortuous. Marked cervical spondylosis and degenerative disc disease No other acute abnormality in the neck Dictated by: Dictated on workstation # [id number]
== END 2020-09-16 00:24 | disposition home or self-care (01) ==
LOC: EDUNIT# 20:53 → ER 20:56
DX: N39.0 Urinary tract infection, site not specified (principal); F41.9 Anxiety disorder, unspecified; F20.9 Schizophrenia, unspecified; F31.9 Bipolar disorder, unspecified; Z88.8 Allergy status to other drugs, medicaments and biological substances; Z79.82 Long term (current) use of aspirin
CPT/HCPCS: 36415; 70450; 70496; 70498; 72125; 72170; 80053; 81000; 85025; 85610; 85730; 87077; 87088; 87186

== ENCOUNTER → 2020-11-09 | Outpatient (CLI) ==
[~2020-11-09] MED LIST changes: +CEFU250T80 PO
[2020-11-09 18:16] LABS: BILIRUBIN,URINE NEGATIVE (NEGATIVE); CLARITY,URINE CLOUDY; COLOR,URINE YELLOW; GLUCOSE, URINE (UA) NEGATIVE (NEGATIVE); KETONES,URINE NEGATIVE (NEGATIVE); LEUKOCYTE ESTERASE ,URINE 2+ (NEGATIVE); NITRITE,URINE NEGATIVE (NEGATIVE); PH,URINE 5.5 (5-9); PROTEIN,URINE NEGATIVE (NEGATIVE)
[2020-11-09 18:24] LABS: AMORPHOUS SEDIMENT,UR MOD AMOR URATES /LPF; BACTERIA,URINE NEGATIVE /HPF; SQUAMOUS EPITHELIAL CELL,UR RARE /HPF
== END ==
LOC: MERGE 17:54
PROVIDERS: ATTEND Internal Medicine
DX: R30.9 Painful micturition, unspecified (principal)
CPT/HCPCS: 81000; 87077; 87088; 87186

== ENCOUNTER 2021-07-24 22:03 | Emergency (ER) | payer MEDICARE, MEDICAID ==
[~2021-07-24] VITALS: Ht 165.1 cm; Wt 57.2 kg
[~2021-07-24 22:03] MED LIST changes: -CRAN500T2 PO; +CRAN500T3 PO; -LISI10TA2 PO; +LISI10TA25 PO; +MIRT-68 PO
--- NOTE | 2021-07-24 22:07 | ED Headache ---
General Stated Complaint: FALL Source: patient Exam Limitations: no limitations (DEEPTHI LAN APRN) History of Present Illness Date Seen by Provider: Jul 24, 2021 Time Seen by Provider: 22:07 Initial Comments To ER with reports of a fall. She comes from a local half-way and she tipped over out of her wheelchair striking the front of her head on the ground. Timing/Duration: 1-3 hours Severity/Quality: moderate Associated Symptoms: denies symptoms (DEEPTHI LAN APRN) Allergies and Home Medications Allergies Coded Allergies: lithium (Unverified Allergy, Mild, 01/22/10) quetiapine (Unverified Allergy, Mild, 01/22/10) Home Medications Acetaminophen 500 Mg Tablet, 1,000 MG PO Q6H PRN for pain/temperature, (Reported) take 2 (500mg) tabs Aspirin 81 Mg Tab.chew, 81 MG PO DAILY, (Reported) Benztropine Mesylate 0.5 Mg Tablet, 0.5 MG PO DAILY, (Reported) Carbamazepine 100 Mg Tab.er.12h, 100 MG PO DAILY, (Reported) Carbamazepine 100 Mg Tab.er.12h, 300 MG PO HS, (Reported) take 3 (100mg) tabs Cefuroxime Axetil 250 Mg Tablet, 250 MG PO BID Prescribed by: DEEPTHI ALN on 09/15/20 2240 Cranberry Extract Unknown Strength Tablet, 1 TAB PO TID, (Reported) Docusate Sodium 100 Mg Capsule, 100 MG PO BID, (Reported) Fluphenazine HCl 1 Mg Tablet, 1 MG PO HS, (Reported) Furosemide 40 Mg Tablet, 40 MG PO DAILY, (Reported) Ibuprofen 600 Mg Tablet, 600 MG PO Q8H PRN for PAIN, (Reported) Lisinopril 10 Mg Tablet, 10 MG PO DAILY, (Reported) Loratadine 10 Mg Tablet, 10 MG PO DAILY, (Reported) Lorazepam 1 Mg Tablet, 1 MG PO UD PRN for before catheter change, (Reported) Mag Hydrox/Al Hydrox/Simeth 30 Ml Oral.susp, 30 ML PO Q4H PRN for INDIGESTION, (Reported) Magnesium Hydroxide 400 Mg/5 Ml Oral.susp, 1,200 MG PO DAILY PRN for CONSTIPAT ION-1ST LINE, (Reported) Menthol 118 Ml Gel..ml., 4 ML TP Q6H PRN for pain in hips, (Reported) Metoprolol Succinate 25 Mg Tab.er.24h, 25 MG PO DAILY, (Reported) Metoprolol Tartrate 50 Mg Tablet, 50 MG PO BID, (Reported) Mirtazapine 15 Mg Tablet, 15 MG PO HS, (Reported) Multivitamin 1 Each Tablet, 1 EACH PO DAILY, (Reported) Mv-Mn/FA/Vit K/Lycop/Lut/Zeaxa 1 Each Tablet, 1 EACH PO DAILY, (Reported) Nitroglycerin 0.4 Mg Tab.subl, 0.4 MG SL UD PRN for CHEST PAIN, (Reported) [place]-3 Fatty Acids/Fish Oil 1 Each Capsule, 1,000 MG PO DAILY, (Reported) Potassium Chloride 20 Meq Tablet.er, 20 MEQ PO BID, (Reported) Patient Home Medication List Home Medication List Reviewed: Yes (DEEPTHI LAN APRN) Review of Systems Review of Systems Constitutional: see HPI Eyes: No Symptoms Reported Ears, Nose, Mouth, Throat: no symptoms reported Respiratory: no symptoms reported Cardiovascular: no symptoms reported Genitourinary: no symptoms reported Musculoskeletal: no symptoms reported Skin: no symptoms reported Psychiatric/Neurological: No Symptoms Reported (DEEPTHI LAN APRN) Past Ragdano-Gsbzsr-Rydwep Hx Seasonal Allergies Seasonal Allergies: Yes (DEEPTHI LAN APRN) Past Medical History Surgeries: Yes (SUPRAPUBIC CATHETER PLACEMENT--OTHER SURGERIES ARE UNKNOWN) Respiratory: No Cardiac: Yes (VENTRICULAR TACHYCARDIA) Chronic Edema/Swelling, High Cholesterol, Hypertension Neurological: Yes (?MR?) 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 CHRONIC GENERALIZED PAIN, chronic knee pain) Arthritis Endocrine: Yes Diabetes, Non-Insulin dep HEENT: Yes Macular Degeneration Cancer: No Psychosocial: Yes Anxiety, Bipolar, Schizophrenia Integumentary: No Blood Disorders: No (DEEPTHI LAN APRN) Physical Exam Vital Signs Vital Signs - First Documented 07/24/21 22:03 Temp 36.3 Pulse 76 Resp 18 B/P (MAP) 143/68 (93) Pulse Ox 99 O2 Delivery Room Air (DELVIN,DAREN K DO) Vital Signs Capillary Refill : (DEEPTHI LAN APRN) Height, Weight, BMI Height: 5'4.75" Weight: 211lbs. 0.0oz. 95.247669ad; 26.00 BMI Method:Stated General Appearance: WD/WN, no apparent distress HEENT: PERRL/EOMI, normal ENT inspection, other (Large hematoma without broken skin over the right eyebrow) Neck: non-tender, full range of motion Cardiovascular: regular rate, rhythm, no murmur Respiratory: normal breath sounds, no respiratory distress, no accessory muscle use Gastrointestinal: normal bowel sounds, non tender Extremities: normal range of motion, non-tender Psychiatric: alert, oriented x 3 Crainal Nerves: normal hearing, normal speech, PERRL Motor/Sensory: no motor deficit, no sensory deficit Skin: normal color, warm/dry (DEEPTHI LAN APRN) Progress/Results/Core Measures Results/Orders Vital Signs/I&O 07/24/21 22:03 Temp 36.3 Pulse 76 Resp 18 B/P (MAP) 143/68 (93) Pulse Ox 99 O2 Delivery Room Air (DAREN HARGROVE DO) Progress Progress Note : Progress Note 2299--ASSUMED CARE OF PT FROM POOJA LAN AT END OF SHIFT. CT RESULTS PENDING. PT HAS NO COMPLAINTS AT THIS TIME (DAREN HARGROVE DO) Diagnostic Imaging Comments CT HEAD/CERVICAL SPINE--PER RADIOLOGIST REPORT AT 2317 IMPRESSION: 1. Large right frontal scalp hematoma. No calvarium fracture or acute intracranial hemorrhage is seen. 2. Severe multilevel degenerative changes in the cervical spine with no acute fracture seen. Reviewed: Reviewed by Me (DAREN HARGROVE DO) Departure Impression Primary Impression: Scalp hematoma Additional Impressions: S/P FALL FROM WHEELCHAIR Periorbital hematoma of right eye CERVICAL SPINE STRAIN Disposition: 01 HOME, SELF-CARE Condition: Stable Departure-Patient Inst. Decision time for Depature: 22:59 (DEEPTHI LAN APRN) Referrals: ANNEMARIE LOPEZ MD (PCP/Family) Primary Care Physician Patient Instructions: [facility] ED, HEMATOMA, Neck Sprain (DC), Preventing Falls in the Older Adult Add. Discharge Instructions: ICE TO AREA AT 20 MINUTE INTERVALS TYLENOL NEEDED FOR PAIN CONTINUE YOUR REGULAR MEDICATIONS PRESCRIBED FOLLOW UP WITH YOUR DR NEEDED DEEPTHI LAN APRN Jul 24, 2021 22:07 DAREN HARGROEV DO Jul 24, 2021 23:24
--- NOTE | 2021-07-24 23:05 | Diagnostic Imaging Report ---
PROCEDURE: CT head and CT cervical spine without contrast. TECHNIQUE: Multiple contiguous axial images were obtained through the brain and cervical spine without the use of intravenous contrast. Sagittal and coronal reformations through the cervical spine were then performed. Auto Exposure Controls were utilized during the CT exam to meet ALARA standards for radiation dose reduction. INDICATION: Fall, head and neck injury COMPARISON: 09/15/2020 FINDINGS: CT HEAD: The ventricles and cortical sulci are mildly prominent. There is no midline shift or significant mass effect. Questionable hypodensity at the right frontal lobe is thought to be due to artifact due to the thickened hyperostosis frontalis. No acute intracranial hemorrhage is seen. There is no CT evidence of acute territorial ischemia. The calvarium appears intact. There is a large right frontal scalp hematoma, which measures up to 5.3 x 1.8 cm on axial imaging. CT cervical spine: Alignment of the cervical spine demonstrates grade 1 anterolisthesis at C3-C4, C7-T1, T1-T2, T2-T3. There are severe degenerative changes at all levels of the cervical spine. There is marked facet arthropathy bilaterally. No acute fracture is seen. No bony fragments or hyperdense fluid collections are seen in the spinal canal. There appears to be multilevel spinal canal and foraminal stenosis due to the degenerative change. Soft tissues about the neck demonstrate no acute abnormality. IMPRESSION: 1. Large right frontal scalp hematoma. No calvarium fracture or acute intracranial hemorrhage is seen. 2. Severe multilevel degenerative changes in the cervical spine with no acute fracture seen. Dictated by: Dictated on workstation # [id number]
[2021-07-25 00:25] VITALS: BP 134/62
== END 2021-07-25 00:25 | disposition home or self-care (01) ==
LOC: EDUNIT# 22:03 → ER 22:06
DX: S16.1XXA Strain of muscle, fascia and tendon at neck level, initial encounter (principal); S05.11XA Contusion of eyeball and orbital tissues, right eye, initial encounter; I10 Essential (primary) hypertension; F41.9 Anxiety disorder, unspecified; E11.9 Type 2 diabetes mellitus without complications; F20.9 Schizophrenia, unspecified; F31.9 Bipolar disorder, unspecified; Z79.82 Long term (current) use of aspirin; Z79.899 Other long term (current) drug therapy; W22.8XXA Striking against or struck by other objects, initial encounter
CPT/HCPCS: 70450; 72125

== ENCOUNTER 2021-08-30 22:58 | Emergency (ER) | payer MEDICARE, MEDICAID ==
[~2021-08-30] VITALS: Ht 162 cm; Wt 57.2 kg
[2021-08-30] MEDS ORDERED: LIDOCAINE UROJET 2% GEL 10 ML PKG TOP ONE (23:45)
[2021-08-31 00:12] LABS: BILIRUBIN,URINE NEGATIVE (NEGATIVE); CLARITY,URINE CLEAR; COLOR,URINE YELLOW; GLUCOSE, URINE (UA) NEGATIVE (NEGATIVE); KETONES,URINE NEGATIVE (NEGATIVE); LEUKOCYTE ESTERASE ,URINE 3+ (NEGATIVE); NITRITE,URINE NEGATIVE (NEGATIVE); PH,URINE 7.5 (5-9); PROTEIN,URINE NEGATIVE (NEGATIVE)
--- NOTE | 2021-08-31 00:28 | ED GU-Female ---
General Chief Complaint: Catheter/Drain/Tube Problems Stated Complaint: CATHETER ISSUES Nursing Triage Note: PT PRESENTS TO ED FROM LT FACILITY WITH STAFF. WHILE SHOWERING TODAY THE PATIENT'S SUPRAPUBIC CATHETER WAS DISLODGED AROUND 1430 DURING A SHOWER, PT HAS BEEN COMBATIVE TOWARDS STAFF WHO HAVE ATTEMPTED REINSERTION. PT HAS LONG STANDING PSYCH HX PER STAFF. Source: old records (ALL PMH IS FROM OLD RECORDS), caregiver Exam Limitations: other (PT UNABLE TO PROVIDE ANY INFORMATION) History of Present Illness Date Seen by Provider: Aug 30, 2021 Time Seen by Provider: 23:37 Initial Comments PT ARRIVES VIA POV WITH CANDY CATCHER FROM [facility] PT WITH LONG-TERM INDWELLING SUPRAPUBIC CATHETER FOR CHRONIC INCONTINENCE/RETENTION/CHRONIC UTI'S--SINCE 2009, PLACED BY DR. RUIZ AROUND 1430 THIS AFTERNOON, IT WAS PULLED OUT WHILE IN THE SHOWER STAFF AT CUSTODIAL AND HOSPICE NURSE WERE UNABLE TO REPLACE IT, AND WAS ADVISED TO LEAVE IT OUT FOR THE WEEKEND AND FOLLOW UP WITH DR. CARRASQUILLO ON THURSDAY TO HAVE IT REPLACED. PT WAS REPORTEDLY COMBATIVE WITH STAFF EARLIER WHEN TRYING TO REPLACE IT. CUSTODIAL STAFF MEMBER STATES PT IS ON DAILY, PROPHYLACTIC ANTIBIOTIC FOR CHRONIC UTI'S--STATES IT IS MACROBID ONCE A DAY. NO CUSTODIAL PAPERS ARE BROUGHT WITH PATIENT, AND NO MEDICATION LIST IS BROUGHT WITH PATIENT. PT WITH LONG HISTORY OF MENTAL HEALTH ISSUES, AND APPEARS TO BE VERY JUVENILE IN HER DEMEANOR, AND IS UNABLE TO PROVIDE ANY INFORMATION PCP: DR. LOPEZ Allergies and Home Medications Allergies Coded Allergies: lithium (Unverified Allergy, Mild, 01/22/10) quetiapine (Unverified Allergy, Mild, 01/22/10) Patient Home Medication List Home Medication List Reviewed: Yes Acetaminophen (Acetaminophen) 500 Mg Tablet, 1,000 MG PO Q6H PRN for pain/temperature, (Reported) Entered as Reported by: JILLIAN SALCIDO on 10/25/18 1018 Aspirin (Aspirin) 81 Mg Tab.chew, 81 MG PO DAILY, (Reported) Entered as Reported by: JILLIAN SALCIDO on 10/25/18 1018 Benztropine Mesylate (Benztropine Mesylate) 0.5 Mg Tablet, 0.5 MG PO DAILY, (Reported) Entered as Reported by: JILLIAN SALCIDO on 10/25/18 1018 Carbamazepine (Carbamazepine ER) 100 Mg Tab.er.12h, 100 MG PO DAILY, (Reported) Entered as Reported by: JILLIAN SALCIDO on 10/25/18 1308 Carbamazepine (Carbamazepine ER) 100 Mg Tab.er.12h, 300 MG PO HS, (Reported) Entered as Reported by: JILLIAN SALCIDO on 10/25/18 1308 Cefuroxime Axetil (Cefuroxime) 250 Mg Tablet, 250 MG PO BID Prescribed by: DEEPTHI LAN on 09/15/20 2240 Cranberry Extract (Cranberry) Unknown Strength Tablet, 1 TAB PO TID, (Reported) Entered as Reported by: JILLIAN SALCIDO on 10/25/18 1018 Docusate Sodium (Docusate Sodium) 100 Mg Capsule, 100 MG PO BID, (Reported) Entered as Reported by: JILLIAN SALCIDO on 10/25/18 1018 Fluphenazine HCl (Fluphenazine HCl) 1 Mg Tablet, 1 MG PO HS, (Reported) Entered as Reported by: JILLIAN SALCIDO on 10/25/18 1018 Furosemide (Furosemide) 40 Mg Tablet, 40 MG PO DAILY, (Reported) Entered as Reported by: JILLIAN SALCIDO on 10/25/18 1018 Ibuprofen (Ibuprofen) 600 Mg Tablet, 600 MG PO Q8H PRN for PAIN, (Reported) Entered as Reported by: JILLIAN SALCIDO on 10/25/18 1018 Lisinopril (Lisinopril) 10 Mg Tablet, 10 MG PO DAILY, (Reported) Entered as Reported by: JILLIAN SALCIDO on 10/25/18 1108 Loratadine (Loratadine) 10 Mg Tablet, 10 MG PO DAILY, (Reported) Entered as Reported by: JILLIAN SALCIDO on 10/25/18 1108 Lorazepam (Ativan) 1 Mg Tablet, 1 MG PO UD PRN for before catheter change, (Reported) Entered as Reported by: JILLIAN SALCIDO on 10/25/18 1018 Mag Hydrox/Al Hydrox/Simeth (Mylanta Suspension) 30 Ml Oral.susp, 30 ML PO Q4H PRN for INDIGESTION, (Reported) Entered as Reported by: JILLIAN SALCIDO on 10/25/181107 Magnesium Hydroxide (Milk of Magnesia) 400 Mg/5 Ml Oral.susp, 1,200 MG PO DAILY PRN for CONSTIPATION-1ST LINE, (Reported) Entered as Reported by: JILLIAN SALCIDO on 10/25/181107 Menthol (Biofreeze) 118 Ml Gel..ml., 4 ML TP Q6H PRN for pain in hips, (Reported) Entered as Reported by: JILLIAN SALCIDO on 10/25/18 101 Metoprolol Succinate (Metoprolol Succinate) 25 Mg Tab.er.24h, 25 MG PO DAILY, (Reported) Entered as Reported by: JILLIAN SALCIDO on 10/25/18 130 Metoprolol Tartrate (Metoprolol Tartrate) 50 Mg Tablet, 50 MG PO BID, (Reported) Entered as Reported by: JILLIAN SALCIDO on 10/25/181107 Mirtazapine (Mirtazapine) 15 Mg Tablet, 15 MG PO HS, (Reported) Entered as Reported by: JILLIAN SALCIDO on 10/25/181107 Multivitamin (Multiple Vitamins) 1 Each Tablet, 1 EACH PO DAILY, (Reported) Entered as Reported by: JILLIAN SALCIDO on 10/25/181107 Mv-Mn/FA/Vit K/Lycop/Lut/Zeaxa (Ocuvite Eye + Multi Tablet) 1 Each Tablet, 1 EACH PO DAILY, (Reported) Entered as Reported by: JILLIAN SALCIDO on 10/25/18 130 Nitroglycerin (Nitroglycerin) 0.4 Mg Tab.subl, 0.4 MG SL UD PRN for CHEST PAIN, (Reported) Entered as Reported by: JILLIAN SALCIDO on 10/25/18 130 [place]-3 Fatty Acids/Fish Oil ([place] 3 1,000 mg Softgel) 1 Each Capsule, 1,000 MG PO DAILY, (Reported) Entered as Reported by: JILLIAN SALCIDO on 10/25/18 130 Potassium Chloride (Potassium Chloride) 20 Meq Tablet.er, 20 MEQ PO BID, (Reported) Entered as Reported by: JILLIAN SALCIDO on 10/25/18 130 Review of Systems Review of Systems Constitutional: no symptoms reported Genitourinary: see HPI Past Leyrxfd-Lakwbt-Ocbjdw Hx Patient Social History Tobacco Use?: No Smoking Status: Unknown if Ever Smoked Substance use?: No Alcohol Use?: No Immunizations Up To Date Influenza Vaccine Up-to-Date: Yes; Up-to-Date Seasonal Allergies Seasonal Allergies: Yes Past Medical History Surgery/Hospitalization HX: -CYSTOSCOPY [address] RUIZ -SUPRAPUBIC CATHETER PLACED [address] RUIZ FOR CHRONIC INCONTINENCE/RETENTION/UTI'S -EGD [address] 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 CHRONIC GENERALIZED PAIN,CHRONIC KNEE PAIN; WC BOUND) Arthritis Endocrine: Yes Diabetes, Non-Insulin dep HEENT: Yes (CATARACT SURGERY) Cataract, Dysphagia, Macular Degeneration Cancer: No Psychosocial: Yes (? MR ? ; PSYCHOSIS) Anxiety, Bipolar, Schizophrenia Integumentary: No Blood Disorders: No Physical Exam Vital Signs Vital Signs - First Documented 08/30/21 23:31 Temp 36.2 Pulse 79 Resp 22 B/P (MAP) 131/84 (100) Pulse Ox 97 O2 Delivery Room Air Capillary Refill : Less Than 3 Seconds Height, Weight, BMI Height: 5'4.75" Weight: 211lbs. 0.0oz. 95.407670oe; 21.00 BMI Method:Stated General Appearance: WD/WN, no apparent distress Gastrointestinal: non tender, soft, other (SUPRAPUBIC SITE, WITH TRICKLE OF URINE, NO SIGNS OF INFECTION AND NO ACTIVE BLEEDING AROUND THE SITE. ) Genital/Rectal: other (SIGNIFICANT AMOUNT OF URINARY INCONTINENCE FROM URETHRA. ) Extremities: normal range of motion Neurologic/Psychiatric: no motor/sensory deficits (GROSSLY INTACT), alert, other (APPEARS JUVENILE IN DEMEANOR, AND ORIENTED TO PERSON, BUT DISORIENTED TO TIME, SITUATION AND UNABLE TO GIVE ANY INFORMATION OR HISTORY. KNOWS SHE IS IN [facility]. ) Skin: normal color, warm/dry Procedures/Interventions Progress BURTON CATHETER PLACED WITHOUT DIFFICULTY, AFTER UNSUCCESSFUL ATTEMPTS TO REPLACE SUPRAPUBIC CATHETER Progress/Results/Core Measures Suspected Sepsis SIRS Temperature: Pulse: 79 Respiratory Rate: 22 Blood Pressure 131 /84 Mean: 100 Results/Orders Lab Results Laboratory Tests Test 08/31/21 00:03 Range/Units Urine Color YELLOW Urine Clarity CLEAR Urine pH 7.5 5-9 Urine Specific [place] <=1.005 1.016-1.022 Urine Protein NEGATIVE NEGATIVE Urine Glucose (UA) NEGATIVE NEGATIVE Urine Ketones NEGATIVE NEGATIVE Urine Nitrite NEGATIVE NEGATIVE Urine Bilirubin NEGATIVE NEGATIVE Urine Urobilinogen 0.2 < = 1.0 MG/DL Urine Leukocyte Esterase 3+ H NEGATIVE Urine RBC (Auto) 1+ H NEGATIVE Urine RBC 0-2 /HPF Urine WBC 50-100 H /HPF Urine Crystals NONE /LPF Urine Bacteria TRACE /HPF Urine Casts NONE /LPF Urine Mucus NEGATIVE /LPF Urine Culture Indicated YES My Orders Orders - DAREN HARGROVE DO Lidocaine 2% (Urojet) (Xylocaine Urojet) (08/30/21 23:45) Catheter(Urinary) Insert & Ass 03,15 (08/31/21 00:03) Ua Culture If Indicated (08/31/21 00:03) Urine Culture (08/31/21 00:03) Medications Given in ED Current Medications Medications Dose Ordered Sig/Stanley Route Start Time Stop Time Status Last Admin Dose Admin Lidocaine HCl 10 ml ONCE ONCE TOP 08/30/21 23:45 08/30/21 23:47 DC 08/30/21 23:50 10 ML Vital Signs/I&O 08/30/21 08/31/21 23:31 01:07 Temp 36.2 36.2 Pulse 79 72 Resp 22 20 B/P (MAP) 131/84 (100) 127/76 Pulse Ox 97 97 O2 Delivery Room Air Room Air Capillary Refill : Less Than 3 Seconds Blood Pressure Mean: 100 Progress Note : Progress Note UNABLE TO PASS SUPRAPUBIC CATHETER, AFTER MULTIPLE ATTEMPTS--CATHETER HAS BEEN OUT FOR OVER 10 HOURS AT THIS TIME. PT WITH VERY SMALL AMOUNT OF URINE LEAKING FROM SUPRAPUBIC SITE, BUT PT HAS COMPLETELY SATURATED BRIEF, WITH EVIDENCE OF LARGE AMOUNT OF LEAKAGE FROM URETHRA, AND STAFF MEMBER STATES THAT OTHER STAFF MEMBERS HAVE STATED THAT HAS URINATED FROM URETHRA MULTIPLE TIMES TODAY THEREFORE, 16 FR BURTON CATHETER WAS EASILY PLACED BY MYSELF WITH LARGE AMOUNT OF URINE RETURNED. NO UROLOGIST AVAILABLE HERE AT THIS TIME DELAY IN OBTAINING UA RESULTS FROM LAB Departure Impression Primary Impression: SUPRAPUBIC CATHETER ACCIDENTALLY PULLED OUT Additional Impressions: BURTON CATHETER PLACEMENT UTI (urinary tract infection) Disposition: XF SNF Condition: Stable Departure-Patient Inst. Decision time for Depature: 01:00 Referrals: ANNEMARIE LOPEZ MD (PCP/Family) Primary Care Physician CORAL CARRASQUILLO MD Patient Instructions: How to Care for Your Burton Catheter, How to Prevent Catheter Associated Urinary Tract Infections, Urinary Tract Infection, Adult (DC) Add. Discharge Instructions: ROUTINE BURTON CATHETER CARE PLACE ABSORBENT DRESSING OVER SUPRAPUBIC CATHETER SITE FOLLOW UP WITH DR. CARRASQUILLO NEXT WEEK FOR FURTHER CARE--CALL ON THURSDAY MORNING FOR APPOINTMENT INCREASE MACROBID TO TWICE A DAY CONTINUE OTHER CURRENT MEDICATIONS PRESCRIBED. All discharge instructions reviewed with patient and/or family. Voiced understanding. DAREN HARGROVE DO Aug 31, 2021 00:28
[2021-08-31 00:54] LABS: BACTERIA,URINE TRACE /HPF; RBC,URINE 0-2 /HPF; WBC,URINE 50-100 /HPF
[2021-08-31 01:07] VITALS: BP 127/76
[2021-09-05] MEDS ORDERED: AMOX-358 PO (08:27)
== END 2021-08-31 01:10 ==
LOC: EDUNIT# 22:58 → ER 23:01
DX: Z46.6 Encounter for fitting and adjustment of urinary device (principal); N39.0 Urinary tract infection, site not specified; I10 Essential (primary) hypertension; F41.9 Anxiety disorder, unspecified; F31.9 Bipolar disorder, unspecified; F03.90 Unspecified dementia, unspecified severity, without behavioral disturbance, psychotic disturbance, mood disturbance, and anxiety; E11.9 Type 2 diabetes mellitus without complications; Z79.82 Long term (current) use of aspirin; Z79.899 Other long term (current) drug therapy
CPT/HCPCS: 51702; 81000; 87077; 87088; 87186

== ENCOUNTER 2022-08-28 19:51 | Inpatient (IN) | payer MEDICARE, MEDICAID ==
[~2022-08-28] VITALS: Ht 154.9 cm; Wt 86.1 kg
[~2022-08-28 19:51] MED LIST changes: +AMOX-358 PO; -CRAN500T3 PO; +CRAN500T4 PO
[2022-08-28] MEDS ORDERED: CEFEPIME INJECTION 1,000 MG in NS (IVPB) 50 ML IV ONE (20:15)
[2022-08-28] MEDS ORDERED: NS IV 1000 ML 1,000 ML IV SCH ×2 (20:15)
--- NOTE | 2022-08-28 20:17 | ED General ---
General Chief Complaint: Catheter/Drain/Tube Problems Stated Complaint: ABNORMAL LABS, UNRESPONSIVE Nursing Triage Note: PT ARRIVAL TO ER VIA [facility] EMS FROM [facility] FOR [facility] AND ABNORMAL LABS. PATIENT HAS KNOWN SIGNIFICANT UTI THAT IS BEING TREATED. PATIENT HAD BURTON PLACED TODAY AT 1600 AT [facility]. PATIENT ARRIVES AND IS UNRESPONSIVE TO VERBAL STIMULI BUT YELLS OUT TO PAINFUL STIMULI. PATIENT HAS IV IN PLACE CHANNEL ROUGHER BY EMS. History of Present Illness Date Seen by Provider: Aug 28, 2022 Time Seen by Provider: 19:51 Initial Comments Patient to ER by EMS from [facility] with chief complaint she has altered mental status, somnolence not waking up and history of UTI and concerning blood work. She has an indwelling catheter for many years. She used to have a suprapubic catheter but now has a Burton catheter for the past year. She is unde r treatment for a UTI. She is arousable to sternal rub. At baseline she just yells nonsense according to staff. She had blood work demonstrating a sodium of 128, potassium five-point and a BUN of 56 and a creatinine at 3.4 which is well above her typical creatinine around 0.5. No noted history of fever. Patient does not give anything meaningful to the history. The patient is a DNR followed by Dr. Olivier. EMS reports the patient's blood glucose was in the 150s. Allergies and Home Medications Allergies Coded Allergies: lithium (Unverified Allergy, Mild, 01/22/10) quetiapine (Unverified Allergy, Mild, 01/22/10) Patient Home Medication List Home Medication List Reviewed: Yes Acetaminophen (Acetaminophen) 500 Mg Tablet, 1,000 MG PO Q6H PRN for pain/temperature, (Reported) Entered as Reported by: JILLIAN SALCIDO on 10/25/18 1018 Amoxicillin/Potassium Clav (Augmentin 875-125 Tablet) 1 Each Tablet, 1 EACH PO BID, (Reported) Entered as Reported by: REYNALDO MORTON on 09/05/21 0827 Aspirin (Aspirin) 81 Mg Tab.chew, 81 MG PO DAILY, (Reported) Entered as Reported by: JILLIAN SALCIDO on 10/25/18 1018 Benztropine Mesylate (Benztropine Mesylate) 0.5 Mg Tablet, 0.5 MG PO DAILY, (Reported) Entered as Reported by: JILLIAN SALCIDO on 10/25/18 1018 Carbamazepine (Carbamazepine ER) 100 Mg Tab.er.12h, 100 MG PO DAILY, (Reported) Entered as Reported by: JILLIAN SALCIDO on 10/25/18 1308 Carbamazepine (Carbamazepine ER) 100 Mg Tab.er.12h, 300 MG PO HS, (Reported) Entered as Reported by: JILLIAN SALCIDO on 10/25/18 1308 Cefuroxime Axetil (Cefuroxime) 250 Mg Tablet, 250 MG PO BID Prescribed by: DEEPTHI LAN on 09/15/20 2240 Cranberry Extract (Cranberry) Unknown Strength Tablet, 1 TAB PO TID, (Reported) Entered as Reported by: JILLIAN SALCIDO on 10/25/18 1018 Docusate Sodium (Docusate Sodium) 100 Mg Capsule, 100 MG PO BID, (Reported) Entered as Reported by: JILLIAN SALCIDO on 10/25/18 1018 Fluphenazine HCl (Fluphenazine HCl) 1 Mg Tablet, 1 MG PO HS, (Reported) Entered as Reported by: JILLIAN SALCIDO on 10/25/18 1018 Furosemide (Furosemide) 40 Mg Tablet, 40 MG PO DAILY, (Reported) Entered as Reported by: JILLIAN SALCIDO on 10/25/18 1018 Ibuprofen (Ibuprofen) 600 Mg Tablet, 600 MG PO Q8H PRN for PAIN, (Reported) Entered as Reported by: JILLIAN SALCIDO on 10/25/18 1018 Lisinopril (Lisinopril) 10 Mg Tablet, 10 MG PO DAILY, (Reported) Entered as Reported by: JILLIAN SALCIDO on 10/25/18 1108 Loratadine (Loratadine) 10 Mg Tablet, 10 MG PO DAILY, (Reported) Entered as Reported by: JILLIAN SALCIDO on 10/25/18 1108 Lorazepam (Ativan) 1 Mg Tablet, 1 MG PO UD PRN for before catheter change, (Reported) Entered as Reported by: JILLIAN SALCIDO on 10/25/18 1018 Mag Hydrox/Al Hydrox/Simeth (Mylanta Suspension) 30 Ml Oral.susp, 30 ML PO Q4H PRN for INDIGESTION, (Reported) Entered as Reported by: JILLIAN SALCIDO on 10/25/18 110 Magnesium Hydroxide (Milk of Magnesia) 400 Mg/5 Ml Oral.susp, 1,200 MG PO DAILY PRN for CONSTIPATION-1ST LINE, (Reported) Entered as Reported by: JILLIAN SALCIDO on 10/25/18 110 Menthol (Biofreeze) 118 Ml Gel..ml., 4 ML TP Q6H PRN for pain in hips, (Reported) Entered as Reported by: JILLIAN SALCIDO on 10/25/18 101 Metoprolol Succinate (Metoprolol Succinate) 25 Mg Tab.er.24h, 25 MG PO DAILY, (Reported) Entered as Reported by: JILLIAN SALCIDO on 10/25/18 130 Metoprolol Tartrate (Metoprolol Tartrate) 50 Mg Tablet, 50 MG PO BID, (Reported) Entered as Reported by: JILLIAN SALCIDO on 10/25/18 110 Mirtazapine (Mirtazapine) 15 Mg Tablet, 15 MG PO HS, (Reported) Entered as Reported by: JILLIAN SALCIDO on 10/25/181107 Multivitamin (Multiple Vitamins) 1 Each Tablet, 1 EACH PO DAILY, (Reported) Entered as Reported by: JILLIAN SALCIDO on 10/25/18 110 Mv-Mn/FA/Vit K/Lycop/Lut/Zeaxa (Ocuvite Eye + Multi Tablet) 1 Each Tablet, 1 EACH PO DAILY, (Reported) Entered as Reported by: JILLIAN SALCIDO on 10/25/18 130 Nitroglycerin (Nitroglycerin) 0.4 Mg Tab.subl, 0.4 MG SL UD PRN for CHEST PAIN, (Reported) Entered as Reported by: JILLIAN SALCIDO on 10/25/18 130 Hartman-3 Fatty Acids/Fish Oil (Hartman 3 1,000 mg Softgel) 1 Each Capsule, 1,000 MG PO DAILY, (Reported) Entered as Reported by: JILLIAN SALCIDO on 10/25/18 130 Potassium Chloride (Potassium Chloride) 20 Meq Tablet.er, 20 MEQ PO BID, (Reported) Entered as Reported by: JILLIAN SALCIDO on 10/25/18 130 Review of Systems Review of Systems Constitutional: see HPI (Review of systems Per staff report); No chills, No diaphoresis EENTM: No no symptoms reported, No ear discharge Respiratory: No cough, No short of breath Cardiovascular: No chest pain, No edema Gastrointestinal: No abdominal pain, No constipation, No diarrhea, No nausea, No vomiting Genitourinary: dysuria; No frequency, No hematuria Musculoskeletal: No back pain, No joint pain All Other Systems Reviewed Negative Unless Noted: Yes Past Dkemxzl-Bjesue-Ylkzih Hx Patient Social History Tobacco Use?: No Use of E-Cig and/or Vaping dev: No Substance use?: No Alcohol Use?: No Pt feels they are or have been: No Seasonal Allergies Seasonal Allergies: Yes Past Medical History Surgery/Hospitalization HX: -CYSTOSCOPY [address] RUIZ -SUPRAPUBIC CATHETER PLACED [address] RUIZ FOR CHRONIC INCONTINENCE/RETENTION/UTI'S -EGD [address] FABIAN FOR DYSPHAGIA -CATARACT SURGERY 2017 -RIGHT BREAST BIOPSY -TOE SURGERY Surgeries: Yes (SUPRAPUBIC CATHETER PLACEMENT--OTHER SURGERIES ARE UNKNOWN) Bladder Surgery, Breast, Eye Surgery, Orthopedic Respiratory: No Cardiac: Yes (VENTRICULAR TACHYCARDIA) Chronic Edema/Swelling, High Cholesterol, Hypertension Neurological: Yes (?MR?) Dementia [employer]ING [employer] SW[employer] History: Menopausal Sexually Transmitted Disease: No Genitourinary: Yes (CHRONIC SUPRAPUBIC CATHETER) UTI-Chronic Gastrointestinal: Yes (GASTRITIS) Gastroesophageal Reflux, Chronic Constipation Musculoskeletal: Yes (FREQUENT FALLS. CHRONIC GENERALIZED PAIN,CHRONIC KNEE GURPREET N; WC BOUND) Arthritis Endocrine: Yes Diabetes, Non-Insulin dep HEENT: Yes (CATARACT SURGERY) Cataract, Dysphagia, Macular Degeneration Cancer: No Psychosocial: Yes (? MR ? ; PSYCHOSIS) Anxiety, Bipolar, Schizophrenia Integumentary: No Blood Disorders: No Physical Exam Vital Signs Vital Signs - First Documented 08/28/22 19:53 Temp 36.9 Pulse 85 Resp 18 B/P (MAP) 112/62 (79) Pulse Ox 94 O2 Delivery Room Air Capillary Refill : Less Than 3 Seconds Height, Weight, BMI Height: 5'4.75" Weight: 211lbs. 0.0oz. 95.963761co; 21.00 BMI Method:Stated General Appearance: Chronically ill, Mild Distress, Obese Eyes: Bilateral Eye Normal Inspection, Bilateral Eye PERRL (1 mm bilateral constricted nonreactive) HEENT: TMs Normal; No Pharynx Normal, No Moist Mucous Membranes (Dry oral mucosa) Neck: Full Range of Motion, Normal Inspection Respiratory: Lungs Clear, Normal Breath Sounds, No Accessory Muscle Use, No Respiratory Distress Cardiovascular: Regular Rate, Rhythm, No Edema Gastrointestinal: Normal Bowel Sounds, Non Tender, Soft Extremity: Normal Capillary Refill Neurologic/Psychiatric: Alert, Oriented x3 Skin: Normal Color, Warm/Dry Focused Exam Lactate Level 08/28/22 20:10: Lactic Acid Level 0.71 Lactic Acid Level Laboratory Tests Test 08/28/22 20:10 Lactic Acid Level 0.71 MMOL/L (0.50-2.00) Progress/Results/Core Measures Suspected Sepsis SIRS Temperature: Pulse: 85 Respiratory Rate: 18 Laboratory Tests 08/28/22 19:50: White Blood Count 12.1H Blood Pressure 112 /62 Mean: 79 08/28/22 20:10: Lactic Acid Level 0.71 Laboratory Tests 08/28/22 19:50: Creatinine 3.11H, INR Comment 1.4, Platelet Count 117L, Total Bilirubin 0.3 Results/Orders Lab Results Laboratory Tests Test 08/28/22 19:50 08/28/22 19:55 08/28/22 20:10 08/28/22 20:27 Range/Units White Blood Count 12.1 H 4.3-11.0 10^3/uL Red Blood Count 3.34 L 3.80-5.11 10^6/uL Hemoglobin 9.2 L 11.5-16.0 g/dL Hematocrit 28 L 35-52 % Mean Corpuscular Volume 84 80-99 fL Mean Corpuscular Hemoglobin 28 25-34 pg Mean Corpuscular Hemoglobin Concent 33 32-36 g/dL Red Cell Distribution Width 14.9 H 10.0-14.5 % Platelet Count 117 L 130-400 10^3/uL Mean Platelet Volume 10.3 9.0-12.2 fL Immature Granulocyte % (Auto) 1 % Neutrophils (%) (Auto) 89 H 42-75 % Lymphocytes (%) (Auto) 5 L 12-44 % Monocytes (%) (Auto) 6 0-12 % Eosinophils (%) (Auto) 0 0-10 % Basophils (%) (Auto) 0 0-10 % Neutrophils # (Auto) 10.7 H 1.8-7.8 10^3/uL Lymphocytes # (Auto) 0.6 L 1.0-4.0 10^3/uL Monocytes # (Auto) 0.7 0.0-1.0 10^3/uL Eosinophils # (Auto) 0.0 0.0-0.3 10^3/uL Basophils # (Auto) 0.0 0.0-0.1 10^3/uL Immature Granulocyte # (Auto) 0.1 0.0-0.1 10^3/uL Neutrophils % (Manual) 92 % Lymphocytes % (Manual) 6 % Monocytes % (Manual) 1 % Band Neutrophils 1 % Percent Immature Platelet Fraction 3.0 0.0-7.6 % Microcytosis SLIGHT Prothrombin Time 17.4 H 12.2-14.7 SEC INR Comment 1.4 0.8-1.4 Activated Partial Thromboplast Time 36 H 24-35 SEC Sodium Level 128 L 135-145 MMOL/L Potassium Level 4.9 3.6-5.0 MMOL/L Chloride Level 95 L 98-107 MMOL/L Carbon Dioxide Level 22 21-32 MMOL/L Anion Gap 11 5-14 MMOL/L Blood Urea Nitrogen 58 H 7-18 MG/DL Creatinine 3.11 H 0.60-1.30 MG/DL Estimat Glomerular Filtration Rate 15 BUN/Creatinine Ratio 19 Glucose Level 131 H 70-105 MG/DL Calcium Level 8.2 L 8.5-10.1 MG/DL Corrected Calcium 9.2 8.5-10.1 MG/DL Total Bilirubin 0.3 0.1-1.0 MG/DL Aspartate Amino Transf (AST/SGOT) 15 5-34 U/L Alanine Aminotransferase (ALT/SGPT) 11 0-55 U/L Alkaline Phosphatase 90 40-136 U/L Total Protein 5.3 L 6.4-8.2 GM/DL Albumin 2.7 L 3.2-4.5 GM/DL Serum Alcohol 10 <10 MG/DL Urine Color YELLOW Urine Clarity CLOUDY Urine pH 8.5 5-9 Urine Specific [place]bee 1.015 L 1.016-1.022 Urine Protein 2+ H NEGATIVE Urine Glucose (UA) NEGATIVE NEGATIVE Urine Ketones NEGATIVE NEGATIVE Urine Nitrite NEGATIVE NEGATIVE Urine Bilirubin NEGATIVE NEGATIVE Urine Urobilinogen 0.2 < = 1.0 MG/DL Urine Leukocyte Esterase 3+ H NEGATIVE Urine RBC (Auto) 3+ H NEGATIVE Urine RBC 10-25 H /HPF Urine WBC 25-50 H /HPF Urine Squamous Epithelial Cells 0-2 /HPF Urine Crystals NONE /LPF Urine Bacteria LARGE H /HPF Urine Casts NONE /LPF Urine Mucus NEGATIVE /LPF Urine Culture Indicated CULTURE PENDING Urine Opiates Screen NEGATIVE NEGATIVE Urine Oxycodone Screen NEGATIVE NEGATIVE Urine Methadone Screen NEGATIVE NEGATIVE Urine Propoxyphene Screen NEGATIVE NEGATIVE Urine Barbiturates Screen POSITIVE H NEGATIVE Ur Tricyclic Antidepressants Screen NEGATIVE NEGATIVE Urine Phencyclidine Screen NEGATIVE NEGATIVE Urine Amphetamines Screen NEGATIVE NEGATIVE Urine Methamphetamines Screen NEGATIVE NEGATIVE Urine Benzodiazepines Screen NEGATIVE NEGATIVE Urine Cocaine Screen NEGATIVE NEGATIVE Urine Cannabinoids Screen NEGATIVE NEGATIVE Lactic Acid Level 0.71 0.50-2.00 MMOL/L Blood Gas Puncture Site RIGHT RADIAL Blood Gas Patient Temperature 36.3 Arterial Blood pH 7.35 L 7.37-7.43 Arterial Blood Partial Pressure CO2 42 35-45 MMHG Arterial Blood Partial Pressure O2 64 L 79-93 MMHG Arterial Blood HCO3 23 23-27 MMOL/L Arterial Blood Total CO2 24.3 21.0-31.0 MMOL/L Arterial Blood Oxygen Saturation 94 94-100 % Arterial Blood Base Excess -1.9 -2.5-2.5 MMOL/L Fermin Test Y Blood Gas Ventilator Setting NO Blood Gas Inspired Oxygen ROOM My Orders Orders - INA SANCHEZ Cbc With Automated Diff (08/28/22 20:10) Comprehensive Metabolic Panel (08/28/22 20:10) Blood Culture (08/28/22 20:10) Sputum Culture (08/28/22 20:10) Urinalysis (08/28/22 20:10) Urine Culture (08/28/22 20:10) Protime With Inr (08/28/22 20:10) Partial Thromboplastin Time (08/28/22 20:10) Chest 1 View, Ap/Pa Only (08/28/22 20:10) Ed Iv/Invasive Line Start (08/28/22 20:10) Ed Iv/Invasive Line Start (08/28/22 20:10) Vital Signs Adult Sepsis Patie Q15M (08/28/22 20:10) O2 (08/28/22 20:10) Remove Rings In Anticipation O (08/28/22 20:10) Lactic Acid Analyzer (08/28/22 20:10) Ns Iv 1000 Ml (Sodium Chloride 0.9%) (08/28/22 20:15) Cefepime Injection (Maxipime Injection) (08/28/22 20:15) Ed Iv/Invasive Line Start (08/28/22 20:10) Ns Iv 1000 Ml (Sodium Chloride 0.9%) (08/28/22 20:15) Arterial Blood Gas (08/28/22 20:10) Drug Screen Stat (Urine) (08/28/22 20:17) Alcohol (08/28/22 20:17) Ct Head Wo (08/28/22 20:17) Manual Differential (08/28/22 19:50) Bnp Coles (08/28/22 21:04) Medications Given in ED Current Medications Medications Dose Ordered Sig/Stanley Route Start Time Stop Time Status Last Admin Dose Admin Cefepime HCl 1000 mg/Sodium Chloride 50 ml @ 100 mls/hr ONCE ONCE IV 08/28/22 20:15 08/28/22 20:44 DC 08/28/22 20:49 100 MLS/HR Vital Signs/I&O 08/28/22 19:53 Temp 36.9 Pulse 85 Resp 18 B/P (MAP) 112/62 (79) Pulse Ox 94 O2 Delivery Room Air Capillary Refill : Less Than 3 Seconds Blood Pressure Mean: 79 Progress Note #1: Time: 20:17 Progress Note Afebrile not tachycardic little tachypneic. She has a certainly an DAVID and hyponatremia. We will get a septic work-up give her a couple liters of fluid to start and get a chest x-ray. ABG. Progress Note #2: Time: 20:47 Progress Note Unclear why she has barbiturates in her urine drug screen as she does not seem to have any prescribed to her. She does have benzos prescribed but those are not in her urine. She has an alcohol level of 10 which is also unexpected since at baseline this patient does not seem to be verbal or able to go out and get things for herself. Diagnostic Imaging Diagonstic Imaging: Xray Plain Films/CT/US/NM/MRI: chest Comments [facility] [place], [place] NAME: BALTAZAR OSEGUERA [facility] REC#: [id number] PT STATUS: REG ER : 1945 PHYSICIAN: INA SANCHEZ MD ADMIT DATE: 08/28/22/ER Draft Date of Exam:08/28/22 CHEST 1 VIEW, AP/PA ONLY HISTORY: Sepsis. TECHNIQUE: Frontal view of the chest. COMPARISON: 08/23/2013. FINDINGS: Lung volumes are mildly low. No consolidation is seen. There is no pleural effusion or pneumothorax. The cardiac silhouette is normal in size. There is moderate central vascular congestion. IMPRESSION: Central vascular congestion. Dictated on workstation # [id number] Dict: 08/28/222040 Trans: 08/28/222043 PJ [id number] Interpreted by: STEPHANIE OBRIEN MD Electronically signed by: Reviewed: Reviewed by Me Diagonstic Imaging: CT Plain Films/CT/US/NM/MRI: head Comments [facility] [place] NAME: BALTAZAR OSEGUERA [facility] REC#: [id number] PT STATUS: REG ER : 1945 PHYSICIAN: INA SANCHEZ MD ADMIT DATE: 08/28/22/ER Draft Date of Exam:08/28/22 CT HEAD WO PROCEDURE: CT head without contrast. TECHNIQUE: Multiple contiguous axial images were obtained through the brain without the use of intravenous contrast. Auto Exposure Controls were utilized during the CT exam to meet ALARA standards for radiation dose reduction. INDICATION: Altered mental status and sepsis. COMPARISON: 07/24/2021. FINDINGS: Ventricles and cortical sulci appear age-appropriate. There is no midline shift or mass effect. No acute intracranial hemorrhage is seen. There is no CT evidence of acute territorial ischemia. The patient's head is tilted in the scanner. The calvarium appears intact. There is hyperostosis frontalis. Visualized paranasal sinuses are clear. IMPRESSION: No acute intracranial hemorrhage or CT evidence of acute territorial ischemia. Dictated on workstation # [id number] Dict: 08/28/222119 Trans: 08/28/222124 PJE [id number] Interpreted by: STEPHANIE OBRIEN MD Electronically signed by: Reviewed: Reviewed by Me Departure Communication (Admissions) Time/Spoke to Admitting Phy: 21:00 Discussed the case with Dr. Mariano who agrees to admit the patient to floor for IV fluid rehydration, cefepime. Impression Primary Impression: UTI (urinary tract infection) Qualified Codes: T83.511A - Infection and inflammatory reaction due to indwelling urethral catheter, initial encounter; N39.0 - Urinary tract inf ection, site not specified Additional Impressions: Altered mental status Qualified Codes: R40.0 - Somnolence Acute kidney injury Dehydration Disposition: ADMITTED INPATIENT Condition: Stable Admissions Decision to Admit Reason: Admit from ER (General) Decision to Admit/Date: Aug 28, 2022 Time/Decision to Admit Time: 20:56 Departure-Patient Inst. Referrals: ANNEMARIE LOPEZ MD (PCP/Family) Primary Care Physician INA SANCHEZ Aug 28, 2022 20:17
[2022-08-28 20:24] LABS: BASOPHILS % (AUTO) 0 % (0-10); EOSINOPHILS % (AUTO) 0 % (0-10); HEMATOCRIT 28 % (35-52); MEAN PLATELET VOLUME 10.3 fL (9.0-12.2)
[2022-08-28 20:26] LABS: HEMOGLOBIN 9.2 g/dL (11.5-16.0); LYMPHOCYTES # (AUTO) 0.6 10^3/uL (1.0-4.0); LYMPHOCYTES % (AUTO) 5 % (12-44); MEAN CORPUSCULAR HEMOGLOBIN 28 pg (25-34); MEAN CORPUSCULAR HGB CONC 33 g/dL (32-36); MEAN CORPUSCULAR VOLUME 84 fL (80-99); MONOCYTES # (AUTO) 0.7 10^3/uL (0.0-1.0); MONOCYTES % (AUTO) 6 % (0-12); NEUTROPHILS # (AUTO) 10.7 10^3/uL (1.8-7.8); NEUTROPHILS % (AUTO) 89 % (42-75); PLATELET COUNT 117 10^3/uL (130-400); WHITE BLOOD COUNT 12.1 10^3/uL (4.3-11.0)
[2022-08-28 20:27] LABS: BILIRUBIN,URINE NEGATIVE (NEGATIVE); CLARITY,URINE CLOUDY; COLOR,URINE YELLOW; GLUCOSE, URINE (UA) NEGATIVE (NEGATIVE); KETONES,URINE NEGATIVE (NEGATIVE); LEUKOCYTE ESTERASE ,URINE 3+ (NEGATIVE); NITRITE,URINE NEGATIVE (NEGATIVE); PH,URINE 8.5 (5-9); PROTEIN,URINE 2+ (NEGATIVE)
[2022-08-28 20:33] LABS: ABG BASE EXCESS -1.9 MMOL/L (-2.5-2.5); ABG OXYGEN SATURATION 94 % (94-100); ABG PCO2 42 MMHG (35-45); ABG PH 7.35 (7.37-7.43); ABG PO2 64 MMHG (79-93); ABG TCO2 24.3 MMOL/L (21.0-31.0)
[2022-08-28 20:37] LABS: ALLENS TEST Y; INSPIRED O2 ROOM; PATIENT TEMP 36.3; VENTILATOR NO
[2022-08-28 20:37] LABS: ALBUMIN 2.7 GM/DL (3.2-4.5); BILIRUBIN,TOTAL 0.3 MG/DL (0.1-1.0); CALCIUM 8.2 MG/DL (8.5-10.1); CREATININE SERUM 3.11 MG/DL (0.60-1.30); POTASSIUM 4.9 MMOL/L (3.6-5.0); TOTAL PROTEIN 5.3 GM/DL (6.4-8.2)
[2022-08-28 20:40] LABS: INR 1.4 (0.8-1.4); PROTHROMBIN TIME PATIENT 17.4 SEC (12.2-14.7)
[2022-08-28 20:42] LABS: AMPHETAMINE SCREEN, URINE NEGATIVE (NEGATIVE); BARBITURATE SCREEN URINE POSITIVE (NEGATIVE); BENZODIAZEPINES SCREEN URINE NEGATIVE (NEGATIVE); CANNABINOID SCREEN, URINE NEGATIVE (NEGATIVE); COCAINE SCREEN URINE NEGATIVE (NEGATIVE); METHADONE STAT NEGATIVE (NEGATIVE); OPIATE SCREEN URINE NEGATIVE (NEGATIVE); OXYCODONE STAT NEGATIVE (NEGATIVE); PROPOXYPHENE STAT NEGATIVE (NEGATIVE); TRICYCLIC ANTIDEPRESSANTS SCRE NEGATIVE (NEGATIVE)
--- NOTE | 2022-08-28 20:44 | Diagnostic Imaging Report ---
HISTORY: Sepsis. TECHNIQUE: Frontal view of the chest. COMPARISON: 08/23/2013. FINDINGS: Lung volumes are mildly low. No consolidation is seen. There is no pleural effusion or pneumothorax. The cardiac silhouette is normal in size. There is moderate central vascular congestion. IMPRESSION: Central vascular congestion. Dictated by: Dictated on workstation # [id number]
[2022-08-28 20:48] LABS: BACTERIA,URINE LARGE /HPF; SQUAMOUS EPITHELIAL CELL,UR 0-2 /HPF; WBC,URINE 25-50 /HPF
[2022-08-28 20:59] LABS: BAND NEUTROPHILS 1 %; LYMPHOCYTES % (MANUAL) 6 %; MONOCYTES % (MANUAL) 1 %; NEUTROPHILS % (MANUAL) 92 %
[2022-08-28 21:00] LABS: MICROCYTOSIS SLIGHT
--- NOTE | 2022-08-28 21:25 | Diagnostic Imaging Report ---
PROCEDURE: CT head without contrast. TECHNIQUE: Multiple contiguous axial images were obtained through the brain without the use of intravenous contrast. Auto Exposure Controls were utilized during the CT exam to meet ALARA standards for radiation dose reduction. INDICATION: Altered mental status and sepsis. COMPARISON: 07/24/2021. FINDINGS: Ventricles and cortical sulci appear age-appropriate. There is no midline shift or mass effect. No acute intracranial hemorrhage is seen. There is no CT evidence of acute territorial ischemia. The patient's head is tilted in the scanner. The calvarium appears intact. There is hyperostosis frontalis. Visualized paranasal sinuses are clear. IMPRESSION: No acute intracranial hemorrhage or CT evidence of acute territorial ischemia. Dictated by: Dictated on workstation # [id number]
[2022-08-28 22:09] VITALS: BP 131/77
[2022-08-28] MEDS: NS IV 1000 ML 1,000 ML IV SCH (22:15)
[2022-08-28] MEDS ORDERED: ACETAMINOPHEN 650 MG SUPP (TYLENOL) PR PRN (22:15)
[2022-08-28] MEDS ORDERED: ONDANSETRON 4 MG/2 ML (SDV) Z0FRAN IV PRN (22:15)
[2022-08-28] MEDS ORDERED: ACETAMINOPHEN 325 MG TABLET PO PRN (22:15)
[2022-08-28] MEDS ORDERED: RT-ALBUTEROL SULF 2.5 MG/3 ML PRE-MIX VIAL INH PRN (23:45)
[2022-08-28 23:57] VITALS: BP 126/81
[2022-08-29] MEDS ORDERED: FUROSEMIDE 40 MG/4 ML INJ (LASIX) IVP ONE (01:30)
[2022-08-29 03:10] VITALS: BP 112/75
[2022-08-29 05:38] LABS: BASOPHILS % (AUTO) 0 % (0-10); HEMOGLOBIN 9.5 g/dL (11.5-16.0); MEAN PLATELET VOLUME 10.3 fL (9.0-12.2)
[2022-08-29 05:40] LABS: EOSINOPHILS % (AUTO) 0 % (0-10); HEMATOCRIT 30 % (35-52); LYMPHOCYTES # (AUTO) 0.2 10^3/uL (1.0-4.0); LYMPHOCYTES % (AUTO) 3 % (12-44); MEAN CORPUSCULAR HEMOGLOBIN 27 pg (25-34); MEAN CORPUSCULAR HGB CONC 32 g/dL (32-36); MEAN CORPUSCULAR VOLUME 86 fL (80-99); MONOCYTES # (AUTO) 0.5 10^3/uL (0.0-1.0); MONOCYTES % (AUTO) 7 % (0-12); NEUTROPHILS % (AUTO) 90 % (42-75); PLATELET COUNT 93 10^3/uL (130-400); WHITE BLOOD COUNT 7.8 10^3/uL (4.3-11.0)
[2022-08-29 06:00] LABS: CALCIUM 8.2 MG/DL (8.5-10.1); CREATININE SERUM 2.06 MG/DL (0.60-1.30)
[2022-08-29] MEDS: inSUlin ASPART (NovoLOG) 1 UNIT/0.01 ML (CHARGE PER UNIT) SC SCH ×4 (06:02→22:10)
[2022-08-29] MEDS: NS IV 1000 ML 1,000 ML IV SCH ×3 (06:07→22:23)
[2022-08-29 07:39] VITALS: BP 124/67
[2022-08-29 07:51] VITALS: BP 112/75
--- NOTE | 2022-08-29 07:56 | Diagnostic Imaging Report ---
INDICATION: 76-year-old female with acute renal failure, dehydration COMPARISONS: 08/28/2022. FINDINGS: Single view of the chest shows the cardiac contour to be normal. There is mild central venous prominence. No consolidations are seen. There is no effusion or pneumothorax. Soft tissues and bony thorax are unremarkable. IMPRESSION: The heart size upper limits of normal with mild central venous congestion. Overall this pattern is similar to the previous study. Few scattered alveolar infiltrates are seen in the lower lobes but no significant consolidations. Dictated by: Dictated on workstation # [id number]
[2022-08-29] MEDS: CEFEPIME 1,000 MG/NS 50 ML IVPB IV SCH ×4 (09:07→22:16)
[2022-08-29 11:01] VITALS: BP 157/81
[2022-08-29] MEDS ORDERED: OLN5T PO (11:23)
[2022-08-29] MEDS ORDERED: NITR-68 PO (11:23)
[2022-08-29] MEDS ORDERED: METH1TAB92 PO (11:23)
[2022-08-29] MEDS ORDERED: CRAN450T9 PO (11:23)
[2022-08-29] MEDS ORDERED: CLON0.5T4 PO (11:23)
[2022-08-29] MEDS ORDERED: BISA5TAB8 PO (11:23)
[2022-08-29] MEDS ORDERED: LACT1CAP87 PO (11:23)
[2022-08-29] MEDS ORDERED: METO-333 PO (11:23)
[2022-08-29] MEDS ORDERED: LAMO25TA8 PO (11:23)
[2022-08-29] MEDS ORDERED: PRIM50TA33 PO ×2 (11:23)
[2022-08-29] MEDS ORDERED: ACET325T49 PO (11:23)
[2022-08-29] MEDS ORDERED: ASCO-262 PO (11:23)
[2022-08-29] MEDS ORDERED: IBUP-2473 PO ×2 (11:23)
[2022-08-29] MEDS ORDERED: ACETAMINOPHEN 325 MG TABLET PO PRN (12:00)
[2022-08-29] MEDS ORDERED: LORazepam 1 MG (ATIVAN) TAB PO PRN (12:00)
[2022-08-29] MEDS ORDERED: MILK OF MAGNESIA 400 MG/5 ML 30 ML UDC PO PRN (12:00)
[2022-08-29] MEDS ORDERED: BISACODYL 5 MG (DULCOLAX) TABLET PO SCH (12:00)
--- NOTE | 2022-08-29 13:08 | History & Physical-Hospitalist ---
ALEXIS CORRALES 08/29/22 1308: History of Present Illness HPI/Chief Complaint Patient is a 76 y/o F with hx of dementia, arthritis, HLD, HTN, GERD, and NIDDM presenting from [facility] with CC of altered mental status and somnolence onset 1 day ago. Per [facility], she has a history of suprapubic catheter placed by Dr. Wood 2009 for chronic incontinence/retention/and UTI. CXR shows heart size to be upper limits of normal with mild central venous congestion. Overall this pattern is similar to the previous study. Few scattered alveolar infiltrates are seen in the lower lobes but no significant consolidations. CT head shows no acute intracranial hemorrhage or CT evidence of acute territorial ischemia. Her ABGs today were 7.35/42/64. She denies any pain right now. Source: patient, old records Exam Limitations: clinical condition Date Seen 08/29/22 Time Seen by a Provider: 11:59 Attending Physician Yung Moreno MD PCP Admitting Physician: Norma Weldon MD Attending Physician: Negar Tracy DO Referring Physician Date of Admission Aug 28, 2022 at 21:07 Home Medications & Allergies Home Medications Reviewed patient Home Medication Reconciliation performed by pharmacy medication reconciliations aircraft maintenance technician and/or nursing. Patients Allergies have been reviewed. Allergies Allergies Coded Allergies lithium (Unverified Allergy, Mild, 01/22/10) quetiapine (Unverified Allergy, Mild, 01/22/10) Past Mrgnmjl-Sffobs-Sphiwb Hx Patient Social History Tobacco Use?: No Use of E-Cig and/or Vaping dev: No Substance use?: No Alcohol Use?: No Pt feels they are or have been: Unable to obtain Immunizations Up To Date Tetanus Booster (TDap): Unknown Date of Pneumonia Vaccine: Aug 30, 2011 Seasonal Allergies Seasonal Allergies: Yes Current Status status: No status: No Advance Directives: Yes Advance Directive Location: Copy placed in chart Communicates: Does Not Communicate Primary Language: Hebrew Preferred Spoken Language: Hebrew Implanted or Applied Medical D: None Past Medical History Surgeries: Bladder Surgery, Breast, Eye Surgery, Orthopedic Chronic Edema/Swelling, High Cholesterol, Hypertension 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 Sexually Transmitted Disease: No UTI-Chronic Gastroesophageal Reflux, Chronic Constipation Arthritis Diabetes, Non-Insulin dep Cataract, Dysphagia, Macular Degeneration Anxiety, Bipolar, Schizophrenia Blood Disorders: No Review of Systems ROS-Unable to Obtain: patient is altered mental status, states she has no pain Physical Exam Physical Exam Vital Signs Vital Signs - First Documented 08/28/22 08/28/22 08/28/22 19:53 21:55 23:31 Temp 36.9 Pulse 85 Resp 18 B/P (MAP) 112/62 (79) Pulse Ox 94 O2 Delivery Room Air O2 Flow Rate 2.00 FiO2 24 Capillary Refill : Less Than 3 Seconds Height, Weight, BMI Height: 5'4.75" Weight: 211lbs. 0.0oz. [id number]; 35.88 BMI Method:Stated General Appearance: No Apparent Distress, Chronically ill Respiratory: Lungs Clear, No Accessory Muscle Use, No Respiratory Distress Cardiovascular: Tachycardia Extremity: Normal Inspection, Non Tender, No Calf Tenderness Neurologic/Psychiatric: Alert Results Results/Procedures Labs Laboratory Tests 08/28/22 19:50 08/29/22 05:20 Patient resulted labs reviewed. Assessment/Plan Admission Diagnosis Admission Status: Observation Assessment and Plan Assessment: Urinary Tract Infection Altered Mental Status Acute Kidney Injury Dehydration Plan: Cefapime PT/OT Restart regular diet for nutrition Restart home meds Monitor labs and replace prn Supportive care NEGAR TRACY DO 08/30/22 0605: History of Present Illness HPI/Chief Complaint CC: AMS HPI: This is a 76yo[place] patient who has a h/o SP cath placed many years ago who presented from the [place] with confusion found to have UTI. Patient is very declined and appears to be a hospice patient. IV abx placed empirically. Source: patient Exam Limitations: clinical condition Past Kfpqavp-Fzayjb-Ielmnn Hx Patient Social History Marrital Status: single Employed/Student: unemployed Review of Systems Constitutional: see HPI Physical Exam Physical Exam General Appearance: No Apparent Distress, Chronically ill Respiratory: Lungs Clear, Normal Breath Sounds Cardiovascular: Regular Rate, Rhythm Neurologic/Psychiatric: Alert Assessment/Plan Admission Diagnosis Assessment: AMS UTI resistant organism presumed Declined status [place] patient Plan: IV abx Supportive care Admission Status: Inpatient Order (span 2 midnights) Reason for Inpatient Admission: Resistant UTI Supervisory-Addendum Brief Verification & Attestation Participated in pt care: history, MDM, physical Personally performed: exam, history, MDM, supervision of care Care discussed with: Medical Student Procedures: n/a Results interpretation: Verified all documentation Verification and Attestation of Medical Student E/M Service A medical student performed and documented this service in my presence. I reviewed and verified all information documented by the medical student and made modifications to such information, when appropriate. I personally performed the physical exam and medical decision making. Negar Tracy, Aug 30, 2022,06:05 ALEXIS CORRALES Aug 29, 2022 13:08 NEGAR TRACY DO Aug 30, 2022 06:05
[2022-08-29] MEDS: OLANZapine 2.5 MG (ZyPREXA) TAB PO SCH ×2 (13:18→22:17)
--- NOTE | 2022-08-29 14:22 | Physical Therapy Evaluation ---
PT Evaluation-General Medical Diagnosis Admission Date Aug 28, 2022 at 21:07 Medical Diagnosis: AMS, somnolence Onset Date: Aug 28, 2022 Therapy Diagnosis Therapy Diagnosis: Gait deficit, strength deficit Height/Weight Height (Feet): 5 Height (Inches): 4.75 Weight (Pounds): 211 Weight (Ounces): 0.0 Precautions Precautions/Isolations: Fall Prevention, Standard Precautions Weight Bear Status Full Weight Bearing Left Lower Extremity: Left Full Weight Bearing Referral Physician: Dr. Dennis Reason for Referral: Evaluation/Treatment Medical History History of Falls (past yr): No Prior Surgery (last 100 days): No Reviewed History: Yes Social History Home: Residential Prior Prior Level of Function SCALE: Activities may be completed with or without assistive devices. 8-Lvtognosdi-ssratbs completes the activity by him/herself with no assistance from a helper. 5-Set-up or Clean-up Assistance-helper sets up or cleans up; patient completes activity. [place] assists only prior to or following the activity. 4-Supervision or Touching Assistance-helper provides verbal cues and/or touching/steadying and/or contact guard assistance as patient completes activity. Assistance may be provided throughout the activity or intermittently. 3-Partial/Moderate Assistance-helper does LESS THAN HALF the effort. [place] lifts, holds or supports trunk or limbs, but provides less than half the effort. 2-Substantial/Maximal Assistance-helper does MORE THAN HALF the effort. [place] lifts or holds trunk or limbs and provides more than half the effort. 3-Yrxskvkbp-qcyovn does ALL the effort. Patient does none of the effort to complete the activity. Or, the assistance of 2 or more helpers is required for the patient to complete the activity. If activity was not attempted, code reason: 7-Patient Refused. 9-Not Applicable-not attempted and the patient did not perform the activity before the current illness, exacerbation or injury. 10-Not Attempted due to Environmental Limitations-(lack of equipment, weather restraints, etc.). 88-Not Attempted due to Medical Conditions or Safety Concerns. Bed Mobility: 3 Transfers (B,C,W/C): 3 Gait: 1 Stairs: 9 Wheelchair Mobility: 9 Indoor Mobility (Ambulation): Dependent Prior Devices Use: Manual wheelchair, Walker Patient reports she needs a lot of assistance from the staff to move in bed and get out of bed. She used a FWW last time she walked, but does not remember the last time she actually took any steps. PT Evaluation-Current Subjective Patient lying supine in bed PT arrival, agreeable to treatment. Reports 0/10 pain. Objective Patient Orientation: Person, Place, Time ROM/Strength ROM Lower Extremities Limited ~ 50% in all planes bilaterally. Strength Lower Extremities 2/5 all planes bilaterally. Sensory Vision: Functional Hearing: Impaired Sensation Right Lower Extremit: Intact Sensation Left Lower Extremity: Intact Transfers Roll Left to Right (QC): 1 Sit to Lying (QC): 1 Lying to Sitting/Side of Bed(Q: 1 Sit to Stand (QC): 1 Chair/Afi-om-Xwytu Xfer(QC): 1 Gait Does the Patient Walk?: No and Walking Goal IS indicated Balance Sitting Static: Fair Sitting Dynamic: Poor Standing Static: Poor Standing Dynamic: Poor Assessment/Needs Patient tolerated treatment poorly. She demonstrates increased edema in LEs and cries out when legs are palpated in any manner. Patient requires total A for all observed bed mobility and transfers. Patient performs SPT to the chair with total Assistance. Patient unable to obtain bilateral TKEs in standing position. Patient in chair post treatment with all needs met, nursing notified, call light in hand, and chair alarm activated. Rehab Potential: Guarded PT Care Home Goals Care Home Goals PT Care Home Goals Time Frame: Sep 05, 2022 Roll Left & Right (QC): 3 Sit to Lying (QC): 3 Lying-Sitting on Side/Bed(QC): 3 Sit to Stand (QC): 3 Chair/Lyb-zf-Gzgyy Xfer(QC): 2 PT Plan Problem List Problem List: Activity Tolerance, Functional Strength, Safety, Balance, Transfer, Bed Mobility, ROM Treatment/Plan Treatment Plan: Continue Plan of Care Treatment Plan: Bed Mobility, Education, Functional Activity Delia, Functional Strength, Group Therapy, Safety, Therapeutic Exercise, Transfers Treatment Duration: Sep 26, 2022 Frequency: 5 times per week Estimated Hrs Per Day: .25 hour per day Patient and/or Family Agrees t: Yes Safety Risks/Education Patient Education: Transfer Techniques Teaching Recipient: Patient Teaching Methods: Demonstration, Discussion Response to Teaching: Reinforcement Needed Time/GCodes Time In: 1350 Time Out: 1415 Total Billed Treatment Time: 25 Total Billed Treatment Visit, JOANNA LLANES JOHN A PT Aug 29, 2022 14:22
[2022-08-29 15:20] VITALS: BP 128/56
[2022-08-29] MEDS: PRIMIDONE 50 MG TAB (MYSOLINE) PO SCH (18:01)
[2022-08-29 19:45] VITALS: BP 131/73
[2022-08-29] MEDS: NON-FORMULARY MEDICATION 1 EA EA (Cranberry Fruit (Cranberry) 450 MG) PO SCH (21:00)
[2022-08-29] MEDS: meTOprolol TARTRATE 25 MG (LOPRESSOR) TABLET PO SCH (22:17)
[2022-08-29] MEDS: lamoTRIgine 25 MG (LaMICtal) TAB PO SCH (22:17)
[2022-08-29] MEDS: MIRTAZAPINE 15 MG (REMERON) TAB PO SCH (22:17)
[2022-08-29] MEDS: clonazePAM 0.5 MG (KlonoPIN) TAB PO SCH (22:17)
[2022-08-29] MEDS: LACTOBACILLUS ACIDOPHILUS (PROBIOTIC) CAPSULE PO SCH (22:17)
[2022-08-29] MEDS: MICONAZOLE 2% POWDER (DESENEX AF) 90 GM TOP SCH (22:18)
[2022-08-29] MEDS: DOCUSATE SODIUM 100 MG (COLACE) CAP PO SCH (22:25)
[2022-08-30] VITALS (7 sets, daily range): BP systolic 130–162; BP diastolic 78–93
[2022-08-30 05:41] LABS: BASOPHILS % (AUTO) 0 % (0-10); EOSINOPHILS # (AUTO) 0.1 10^3/uL (0.0-0.3); EOSINOPHILS % (AUTO) 1 % (0-10); HEMATOCRIT 28 % (35-52); HEMOGLOBIN 9.1 g/dL (11.5-16.0); LYMPHOCYTES # (AUTO) 0.6 10^3/uL (1.0-4.0); LYMPHOCYTES % (AUTO) 11 % (12-44); MEAN CORPUSCULAR HEMOGLOBIN 28 pg (25-34); MEAN CORPUSCULAR HGB CONC 33 g/dL (32-36); MEAN CORPUSCULAR VOLUME 86 fL (80-99); MEAN PLATELET VOLUME 9.8 fL (9.0-12.2); MONOCYTES # (AUTO) 0.7 10^3/uL (0.0-1.0); MONOCYTES % (AUTO) 12 % (0-12); NEUTROPHILS # (AUTO) 4.1 10^3/uL (1.8-7.8); NEUTROPHILS % (AUTO) 75 % (42-75); PLATELET COUNT 94 10^3/uL (130-400); WHITE BLOOD COUNT 5.4 10^3/uL (4.3-11.0)
[2022-08-30 06:04] LABS: ALBUMIN 2.5 GM/DL (3.2-4.5); BILIRUBIN,TOTAL 0.3 MG/DL (0.1-1.0); CALCIUM 8.1 MG/DL (8.5-10.1); CREATININE SERUM 0.84 MG/DL (0.60-1.30); POTASSIUM 3.2 MMOL/L (3.6-5.0); TOTAL PROTEIN 5.2 GM/DL (6.4-8.2)
[2022-08-30] MEDS: inSUlin ASPART (NovoLOG) 1 UNIT/0.01 ML (CHARGE PER UNIT) SC SCH ×4 (06:11→21:13)
--- NOTE | 2022-08-30 06:26 | Progress Note - Hospitalist ---
Subjective HPI/CC On Admission Date Seen by Provider: Aug 30, 2022 Time Seen by Provider: 10:00 CC: AMS HPI: This is a 76yoWF [place] patient who has a h/o SP cath placed many years ago [place] with confusion found to have UTI. Patient is very declined and appears to be a hospice patient. IV abx placed empirically. Subjective/Events-last exam Patient is sleeping Appears more declined by the day Cefepime maintained UCx Pseudomonas Focused Exam Lactate Level 08/28/22 20:10: Lactic Acid Level 0.71 Objective Exam Vital Signs Vital Signs Date Time Temp Pulse Resp B/P (MAP) Pulse Ox O2 Delivery O2 Flow Rate FiO2 08/30/22 11:18 37.2 75 22 130/78 (95) 94 Room Air 08/30/22 08:00 0.00 08/28/22 23:31 24 Capillary Refill : Less Than 3 Seconds General Appearance: No Apparent Distress, WD/WN, Chronically ill Respiratory: Lungs Clear, Normal Breath Sounds Cardiovascular: Regular Rate, Rhythm Results/Procedures Lab Laboratory Tests 08/30/22 05:20 Patient resulted labs reviewed. Assessment/Plan Assessment and Plan Assess & Plan/Chief Complaint Assessment: AMS UTI resistant organism presumed-Pseudomonas on prelim maintained empirically on Cefepime Declined status [place] patient Plan: [facility] DO Aug 30, 2022 06:26
[2022-08-30] MEDS: KCL 20 MEQ TAB (K-DUR) PO SCH ×2 (08:52→16:35)
[2022-08-30] MEDS: ASCORBIC ACID (VIT C) 500 MG TABLET PO SCH (08:53)
[2022-08-30] MEDS: LACTOBACILLUS ACIDOPHILUS (PROBIOTIC) CAPSULE PO SCH ×2 (08:53→20:55)
[2022-08-30] MEDS: DOCUSATE SODIUM 100 MG (COLACE) CAP PO SCH ×2 (08:53→20:55)
[2022-08-30] MEDS: ASPIRIN 81 MG CHEW (CHILDREN'S ASA) PO SCH (08:53)
[2022-08-30] MEDS: CEFEPIME 1,000 MG/NS 50 ML IVPB IV SCH ×4 (08:53→20:54)
[2022-08-30] MEDS: meTOprolol TARTRATE 25 MG (LOPRESSOR) TABLET PO SCH ×2 (08:53→20:55)
[2022-08-30] MEDS: clonazePAM 0.5 MG (KlonoPIN) TAB PO SCH ×2 (08:53→20:55)
[2022-08-30] MEDS: PRIMIDONE 50 MG TAB (MYSOLINE) PO SCH ×2 (08:54→16:35)
[2022-08-30] MEDS: MICONAZOLE 2% POWDER (DESENEX AF) 90 GM TOP SCH ×2 (08:58→21:06)
[2022-08-30] MEDS: lamoTRIgine 25 MG (LaMICtal) TAB PO SCH ×2 (08:58→20:55)
[2022-08-30] MEDS: OLANZapine 2.5 MG (ZyPREXA) TAB PO SCH ×3 (08:58→20:57)
[2022-08-30] MEDS: NON-FORMULARY MEDICATION 1 EA EA (Cranberry Fruit (Cranberry) 450 MG) PO SCH ×2 (09:07→21:06)
--- NOTE | 2022-08-30 10:41 | Physical Therapy Daily Note ---
PT Daily Note-Current Subjective Patient in bed pre tx, she is very drowsy, hard to rouse. Eventually she wakes up a bit but doesn't open her eyes, agrees to exercises in bed, too drowsy/lethargic to get out of bed at this time. Pain Section J - Health Conditions 1. Rarely or not at all 2. Occasionally 3. Frequently 4. Almost constantly 8. Unable to answer Pain Effect on Sleep: 8 Pain Interference with Therapy: 8 Pain Interference w/Day-to-Day: 8 Appearance Patient in bed post tx with nurse call, phone, tray, bed alarm on. Mental Status Patient Orientation: Person, Unable to Assess, [place] Transfers SCALE: Activities may be completed with or without assistive devices. 4-Yfsupcxmlh-razxwcn completes the activity by him/herself with no assistance from a helper. 5-Set-up or Clean-up Assistance-helper sets up or cleans up; patient completes activity. [place] assists only prior to or following the activity. 4-Supervision or Touching Assistance-helper provides verbal cues and/or touching/steadying and/or contact guard assistance as patient completes ac tivity. Assistance may be provided throughout the activity or intermittently. 3-Partial/Moderate Assistance-helper does LESS THAN HALF the effort. [place] lifts, holds or supports trunk or limbs, but provides less than half the effort. 2-Substantial/Maximal Assistance-helper does MORE THAN HALF the effort. [place] lifts or holds trunk or limbs and provides more than half the effort. 3-Utbppkiol-hdrjde does ALL the effort. Patient does none of the effort to complete the activity. Or, the assistance of 2 or more helpers is required for the patient to complete the activity. If activity was not attempted, code reason: 7-Patient Refused. 9-Not Applicable-not attempted and the patient did not perform the activity before the current illness, exacerbation or injury. 10-Not Attempted due to Environmental Limitations-(lack of equipment, weather restraints, etc.). 88-Not Attempted due to Medical Conditions or Safety Concerns. Weight Bearing Full Weight Bearing Left Lower Extremity: Left Full Weight Bearing Exercises Supine Ex: Ankle pumps, Glut sets, Heel Slides (AAROM), Straight leg raise (AAROM), Hip abd/add (AAROM) Supine Reps: 15 Treatments LE ROM Assessment Current Status: Poor Progress patient minimally participates PT Separator Operator Goals Separator Operator Goals PT Residential Goals Time Frame: Sep 05, 2022 Roll Left & Right (QC): 3 Sit to Lying (QC): 3 Lying-Sitting on Side/Bed(QC): 3 Sit to Stand (QC): 3 Chair/Nsh-ds-Iuera Xfer(QC): 2 PT Plan Problem List Problem List: Activity Tolerance, Functional Strength, Safety, Balance, Gait, Transfer, Bed Mobility, ROM Treatment/Plan Treatment Plan: Continue Plan of Care Treatment Plan: Bed Mobility, Education, Functional Activity Delia, Functional Strength, Group Therapy, Safety, Therapeutic Exercise, Transfers Treatment Duration: Sep 26, 2022 Frequency: 5 times per week Estimated Hrs Per Day: .25 hour per day Patient and/or Family Agrees t: Yes Safety Risks/Education Patient Education: Correct Positioning, Safety Issues Teaching Recipient: Patient Teaching Methods: Demonstration, Discussion Response to Teaching: Reinforcement Needed Time/GCodes Time In: 1018 Time Out: 1028 Total Billed Treatment Time: 10 Total Billed Treatment 1 visit EX AGUSTÍN JOSEPH PT Aug 30, 2022 10:41
[2022-08-30] MEDS: NS IV 1000 ML 1,000 ML IV SCH (13:10)
[2022-08-30] MEDS ORDERED: D5 NS 1000 ML IV SOLUTION 0 ML IV ONE (18:35)
[2022-08-30] MEDS: D5W 1000 ML IV SOLUTION 1,000 ML IV SCH (18:41)
[2022-08-30] MEDS ORDERED: D5W 1000 ML IV SOLUTION 1,000 ML ONE (18:41)
[2022-08-30] MEDS: MIRTAZAPINE 15 MG (REMERON) TAB PO SCH (20:57)
[2022-08-31] VITALS (7 sets, daily range): BP systolic 112–183; BP diastolic 75–126
[2022-08-31] MEDS: inSUlin ASPART (NovoLOG) 1 UNIT/0.01 ML (CHARGE PER UNIT) SC SCH ×4 (06:07→21:11)
--- NOTE | 2022-08-31 07:57 | Progress Note - Hospitalist ---
Subjective HPI/CC On Admission Date Seen by Provider: Aug 31, 2022 Time Seen by Provider: 10:00 CC: AMS HPI: This is a 76yoWF [place] patient who has a h/o SP cath placed many years ago who presented from the [place] with confusion found to have UTI. Patient is very declined and appears to be a hospice patient. IV abx placed empirically. Subjective/Events-last exam Sleeping most of the time Refuses meds Gentle D5 infusion Poor prognosis Cefepime maintained Review of Systems Neurological: Confusion Focused Exam Lactate Level 08/28/22 20:10: Lactic Acid Level 0.71 Objective Exam Vital Signs Vital Signs Date Time Temp Pulse Resp B/P (MAP) Pulse Ox O2 Delivery O2 Flow Rate FiO2 08/31/22 15:49 37.6 95 18 157/76 (103) 97 Nasal Cannula 2.00 08/31/22 14:29 3 Capillary Refill : Less Than 3 Seconds General Appearance: No Apparent Distress, WD/WN, Chronically ill, Obese, Other (confused) Respiratory: Lungs Clear, Normal Breath Sounds Cardiovascular: Regular Rate, Rhythm Results/Procedures Lab Laboratory Tests 08/31/22 07:35 Patient resulted labs reviewed. Assessment/Plan Assessment and Plan Assess & Plan/Chief Complaint Assessment: AMS UTI resistant organism presumed-Pseudomonas on prelim maintained empirically on Cefepime Declined status [place] patient Plan: [facility] DO Aug 31, 2022 07:57
[2022-08-31 08:00] LABS: BASOPHILS % (AUTO) 0 % (0-10); HEMATOCRIT 32 % (35-52); MEAN CORPUSCULAR HGB CONC 32 g/dL (32-36)
[2022-08-31 08:02] LABS: EOSINOPHILS # (AUTO) 0.2 10^3/uL (0.0-0.3); EOSINOPHILS % (AUTO) 3 % (0-10); LYMPHOCYTES % (AUTO) 15 % (12-44); MEAN CORPUSCULAR HEMOGLOBIN 28 pg (25-34); MEAN CORPUSCULAR VOLUME 87 fL (80-99); MEAN PLATELET VOLUME 10.2 fL (9.0-12.2); MONOCYTES # (AUTO) 0.9 10^3/uL (0.0-1.0); MONOCYTES % (AUTO) 14 % (0-12); NEUTROPHILS # (AUTO) 4.3 10^3/uL (1.8-7.8); NEUTROPHILS % (AUTO) 67 % (42-75); PLATELET COUNT 130 10^3/uL (130-400); WHITE BLOOD COUNT 6.4 10^3/uL (4.3-11.0)
[2022-08-31 08:11] LABS: ALBUMIN 2.6 GM/DL (3.2-4.5); BILIRUBIN,TOTAL 0.3 MG/DL (0.1-1.0); CALCIUM 8.6 MG/DL (8.5-10.1); CREATININE SERUM 0.72 MG/DL (0.60-1.30); POTASSIUM 4.1 MMOL/L (3.6-5.0); TOTAL PROTEIN 5.7 GM/DL (6.4-8.2)
[2022-08-31] MEDS: CEFEPIME 1,000 MG/NS 50 ML IVPB IV SCH ×4 (08:45→20:34)
[2022-08-31] MEDS: NON-FORMULARY MEDICATION 1 EA EA (Cranberry Fruit (Cranberry) 450 MG) PO SCH ×2 (09:44→20:19)
[2022-08-31] MEDS: LACTOBACILLUS ACIDOPHILUS (PROBIOTIC) CAPSULE PO SCH ×2 (09:44→20:35)
[2022-08-31] MEDS: KCL 20 MEQ TAB (K-DUR) PO SCH ×2 (09:44→17:33)
[2022-08-31] MEDS: ASPIRIN 81 MG CHEW (CHILDREN'S ASA) PO SCH (09:45)
[2022-08-31] MEDS: clonazePAM 0.5 MG (KlonoPIN) TAB PO SCH ×2 (09:45→20:35)
[2022-08-31] MEDS: PRIMIDONE 50 MG TAB (MYSOLINE) PO SCH ×2 (09:45→17:33)
[2022-08-31] MEDS: DOCUSATE SODIUM 100 MG (COLACE) CAP PO SCH ×2 (09:45→20:35)
[2022-08-31] MEDS: meTOprolol TARTRATE 25 MG (LOPRESSOR) TABLET PO SCH ×2 (09:45→20:35)
[2022-08-31] MEDS: ASCORBIC ACID (VIT C) 500 MG TABLET PO SCH (09:45)
[2022-08-31] MEDS: lamoTRIgine 25 MG (LaMICtal) TAB PO SCH ×2 (09:45→20:35)
[2022-08-31] MEDS: MICONAZOLE 2% POWDER (DESENEX AF) 90 GM TOP SCH ×2 (09:46→20:35)
[2022-08-31] MEDS: OLANZapine 2.5 MG (ZyPREXA) TAB PO SCH ×3 (09:46→20:35)
[2022-08-31] MEDS: D5W 1000 ML IV SOLUTION 1,000 ML IV SCH (17:32)
[2022-08-31] MEDS: MIRTAZAPINE 15 MG (REMERON) TAB PO SCH (20:35)
[2022-09-01] VITALS: BP 118/79
[2022-09-01 04:00] VITALS: BP 130/77
[2022-09-01 05:39] LABS: BASOPHILS % (AUTO) 0 % (0-10); EOSINOPHILS # (AUTO) 0.2 10^3/uL (0.0-0.3); EOSINOPHILS % (AUTO) 3 % (0-10); HEMATOCRIT 33 % (35-52); HEMOGLOBIN 10.5 g/dL (11.5-16.0); LYMPHOCYTES % (AUTO) 16 % (12-44); MEAN CORPUSCULAR HEMOGLOBIN 28 pg (25-34); MEAN CORPUSCULAR HGB CONC 31 g/dL (32-36); MEAN CORPUSCULAR VOLUME 87 fL (80-99); MONOCYTES # (AUTO) 0.7 10^3/uL (0.0-1.0); MONOCYTES % (AUTO) 11 % (0-12); NEUTROPHILS # (AUTO) 4.4 10^3/uL (1.8-7.8); NEUTROPHILS % (AUTO) 70 % (42-75); PLATELET COUNT 148 10^3/uL (130-400); WHITE BLOOD COUNT 6.3 10^3/uL (4.3-11.0)
[2022-09-01] MEDS: inSUlin ASPART (NovoLOG) 1 UNIT/0.01 ML (CHARGE PER UNIT) SC SCH ×2 (05:54→11:24)
[2022-09-01 06:18] LABS: ALBUMIN 2.9 GM/DL (3.2-4.5)
[2022-09-01 06:19] LABS: POTASSIUM 3.7 MMOL/L (3.6-5.0)
[2022-09-01 06:20] LABS: CALCIUM 8.6 MG/DL (8.5-10.1)
[2022-09-01 06:21] LABS: TOTAL PROTEIN 6.2 GM/DL (6.4-8.2)
[2022-09-01 06:23] LABS: BILIRUBIN,TOTAL 0.3 MG/DL (0.1-1.0)
[2022-09-01 06:25] LABS: CREATININE SERUM 0.62 MG/DL (0.60-1.30)
[2022-09-01 07:27] VITALS: BP 137/79
[2022-09-01] MEDS: LACTOBACILLUS ACIDOPHILUS (PROBIOTIC) CAPSULE PO SCH (08:32)
[2022-09-01] MEDS: clonazePAM 0.5 MG (KlonoPIN) TAB PO SCH (08:32)
[2022-09-01] MEDS: ASPIRIN 81 MG CHEW (CHILDREN'S ASA) PO SCH (08:32)
[2022-09-01] MEDS: ASCORBIC ACID (VIT C) 500 MG TABLET PO SCH (08:33)
[2022-09-01] MEDS: meTOprolol TARTRATE 25 MG (LOPRESSOR) TABLET PO SCH (08:33)
[2022-09-01] MEDS: DOCUSATE SODIUM 100 MG (COLACE) CAP PO SCH (08:33)
[2022-09-01] MEDS: PRIMIDONE 50 MG TAB (MYSOLINE) PO SCH (08:33)
[2022-09-01] MEDS: KCL 20 MEQ TAB (K-DUR) PO SCH (08:33)
[2022-09-01] MEDS: OLANZapine 2.5 MG (ZyPREXA) TAB PO SCH (08:33)
[2022-09-01] MEDS: lamoTRIgine 25 MG (LaMICtal) TAB PO SCH (08:33)
[2022-09-01] MEDS: MICONAZOLE 2% POWDER (DESENEX AF) 90 GM TOP SCH (08:34)
[2022-09-01] MEDS ORDERED: CEFEPIME 1,000 MG/NS 50 ML IVPB IV SCH ×2 (09:00)
--- NOTE | 2022-09-01 10:34 | Physical Therapy Daily Note ---
PT Daily Note-Current Subjective Patient reluctantly agrees to PT. Pain Section J - Health Conditions 1. Rarely or not at all 2. Occasionally 3. Frequently 4. Almost constantly 8. Unable to answer Pain Effect on Sleep: 8 Pain Interference with Therapy: 8 Pain Interference w/Day-to-Day: 8 Mental Status Patient Orientation: Confused Attachments: [place] Catheter, IV Transfers SCALE: Activities may be completed with or without assistive devices. 0-Pjwthajifi-cjpuuid completes the activity by him/herself with no assistance from a helper. 5-Set-up or Clean-up Assistance-helper sets up or cleans up; patient completes activity. [place] assists only prior to or following the activity. 4-Supervision or Touching Assistance-helper provides verbal cues and/or touching/steadying and/or contact guard assistance as patient completes activity. Assistance may be provided throughout the activity or intermittently. 3-Partial/Moderate Assistance-helper does LESS THAN HALF the effort. [place] lifts, holds or supports trunk or limbs, but provides less than half the effort. 2-Substantial/Maximal Assistance-helper does MORE THAN HALF the effort. [place] lifts or holds trunk or limbs and provides more than half the effort. 5-Edagoclut-otgnmk does ALL the effort. Patient does none of the effort to complete the activity. Or, the assistance of 2 or more helpers is required for the patient to complete the activity. If activity was not attempted, code reason: 7-Patient Refused. 9-Not Applicable-not attempted and the patient did not perform the activity before the current illness, exacerbation or injury. 10-Not Attempted due to Environmental Limitations-(lack of equipment, weather restraints, etc.). 88-Not Attempted due to Medical Conditions or Safety Concerns. Lying to Sitting/Side of Bed(Q: 1 (x 2) Sit to Stand (QC): 1 (x 2) Chair/Ffl-oy-Tttkc Xfer(QC): 1 (x 2) Weight Bearing Full Weight Bearing Left Lower Extremity: Left Full Weight Bearing Assessment Patient is dependent of 2 with all mobility. Patient tolerates minimal activity. PT Half-Way Goals Half-Way Goals PT Forklift Technician Goals Time Frame: Sep 05, 2022 Roll Left & Right (QC): 3 Sit to Lying (QC): 3 Lying-Sitting on Side/Bed(QC): 3 Sit to Stand (QC): 3 Chair/Nzs-hd-Gaymq Xfer(QC): 2 PT Plan Treatment/Plan Treatment Plan: Continue Plan of Care Treatment Plan: Bed Mobility, Education, Functional Activity Delia, Functional Strength, Group Therapy, Safety, Therapeutic Exercise, Transfers Treatment Duration: Sep 26, 2022 Frequency: 5 times per week Estimated Hrs Per Day: .25 hour per day Patient and/or Family Agrees t: Yes Time/GCodes Time In: 1000 Time Out: 1010 Total Billed Treatment Time: 10 Total Billed Treatment 1 visit FA 10 min HONEY QUINTANILLA PT Sep 01, 2022 10:34
[2022-09-01] MEDS ORDERED: METH1TAB92 PO (10:57)
[2022-09-01] MEDS ORDERED: CEFD300C3 PO (10:57)
[2022-09-01] MEDS ORDERED: NITR-68 PO (10:57)
--- NOTE | 2022-09-01 10:59 | Discharge Inst-Skilled Nursing ---
Discharge Inst-Skilled NF Reconcile Patient Problems Problems Reviewed?: Yes Chief Complaint CC: AMS HPI: This [place] 76yo[place] patient who has a h/o SP cath placed many years ago [place] with confusion found to have UTI. Patient is very declined and appears to be a hospice patient. IV abx placed empirically. Patient Instructions Patient Problems: UTI debility Goal: If fails skilled needs hospice Consult/Follow Up/Orders Skilled NF Admit to: Certification (SNF) I certify that SNF services are required to be given on an inpatient basis because of the above named patient's need for penitentiary care on a continuing basis for the conditions(s) for which he/she was receiving inpatient hospital services prior to his/her transfer to the SNF. Care Home Facility Order: Nursing Services, Car Changer-Evaluate & Treat, Physical Therapy-Evaluate & Treat Oxygen Delivery Method: Room Air Discharge Diet: No Restrictions Resuscitation Status: Do Not Resuscitate New & Resume Previous Orders New Medications: Cefdinir (Cefdinir) 300 Mg Capsule 300 MG PO BID, #8 CAP Changed Medications: Methenamine Hippurate (Hiprex) 1 Gram Tablet 1 GM PO BID for 5 Days, TAB (Medication details modified) hold for 5 days Nitrofurantoin Macrocrystal (Macrodantin) 100 Mg Capsule 100 MG PO DAILY for 5 Days, CAP (Medication details modified) hold for 5 days Continued Medications: Acetaminophen (Acetaminophen) 325 Mg Tablet 650 MG PO Q6H PRN for PAIN-MILD (1-4), TAB Ascorbate Calcium (Vitamin C) 500 Mg Tablet 500 MG PO DAILY, TAB Aspirin (Aspirin) 81 Mg Tab.chew 81 MG PO DAILY, TAB Bisacodyl (Bisacodyl) 5 Mg Tablet.dr 10 MG PO MO,WE,FR @HS, TAB TAKES 2 (5MG) TABS Clonazepam (Clonazepam) 0.5 Mg Tablet 0.5 MG PO BID, TAB Cranberry Fruit (Cranberry) 450 Mg Tablet 450 MG PO BID, TAB Docusate Sodium (Docusate Sodium) 100 Mg Capsule 100 MG PO BID, CAP Lactobacillus Acidophilus (Acidophilus Lactobacilli) 500 Million Cell Capsule 1 EACH PO BID, CAP Lamotrigine (Lamotrigine) 25 Mg Tablet 50 MG PO BID, TAB TAKES 2 (25MG) TABS Lorazepam (Ativan) 1 Mg Tablet 1 MG PO UD PRN for ANXIETY DUE TO CATH CHANGE, TAB GIVES ONCE MONTHLY ON THE WITH CATH CHANGES Magnesium Hydroxide (Milk of Magnesia) 400 Mg/5 Ml Oral.susp 30 MG PO DAILY PRN for CONSTIPATION-7TH LINE, ML Metoprolol Tartrate (Metoprolol Tartrate) 25 Mg Tablet 25 MG PO BID, TAB HOLD MED FOR SP <80/50 OR PULSE <50 Mirtazapine (Mirtazapine) 15 Mg Tablet 15 MG PO HS, TAB Olanzapine (Olanzapine) 5 Mg Tablet 5 MG PO TID, TAB Primidone (Mysoline) 50 Mg Tablet 25 MG PO 1800, TAB TAKES OF A 50MG TAB Primidone (Mysoline) 50 Mg Tablet 50 MG PO DAILY, TAB Discontinued Medications: Ibuprofen (Ibuprofen) 200 Mg Tablet 600 MG PO 1800, TAB Ibuprofen (Ibuprofen) 200 Mg Tablet 600 MG PO Q8H PRN for PAIN-MILD (1-4), TAB Negar Dennis Sep 01, 2022 10:57 NEGAR DENNIS DO Sep 01, 2022 10:59
--- NOTE | 2022-09-01 11:00 | Discharge Summary ---
Discharge Summary Hospital Course Was the Problem List Reviewed?: Yes Problems/Dx: (1) Acute kidney injury Status: Acute (2) Dehydration Status: Acute (3) UTI (urinary tract infection) Status: Acute Qualifiers: Qualified Codes: T83.511A - Infection and inflammatory reaction due to indwelling urethral catheter, initial encounter; N39.0 - Urinary tract infection, site not specified (4) Altered mental status Status: Acute Qualifiers: Qualified Codes: R40.0 - Somnolence Hospital Course Date of Admission: Aug 28, 2022 at 21:07 Admission Diagnosis : Family Physician/Provider: Yung Moreno MD Date of Discharge: 09/01/22 Discharge Diagnosis: [ ] Hospital Course: CC: Altered Mental Status Subjective/Last Exam: Patient is sitting comfortably in chair eating breakfast. Pt states that she has been experiencing mild discomfort when sitting in the bed and wearing leg compression, but otherwise has no complaints. Pt denies any abd pain, nausea, vomiting, and CP. Pt is stable and will be transferred to hospice upon discharge. Hospital Course: 76yo F with h/o dementia, arthritis, HLD, HTN, GERD, NIDDM, and suprapubic catheter placement for chronic incontinence/UTI presented from [place] on 08/29 for altered mental status and somnolence that started 1 day prior. Pt was admitted for AMS. Pt had a CXR showing heart size to be in the upper limits of normal with mild central venous congestion, which was unchanged from previous studies. Few scatter alveolar infiltrates were seen in the lower lobes but there was no significant consolidations noted. Pt had a CT head that was negative for acute intracranial hemorrhage or evidence of acute territorial ischemia. Workup found Proteus Mirabilis and Pseudomonas Aeruginosa bacteria in the pt's urine and pt was started on IV Cefepime and oral Cefedinir. Pt is stable and will be discharged to hospice. PACHECO HUTSON Labs and Pending Lab Test: Laboratory Tests 08/31/22 15:22: Glucometer 124H 08/31/22 20:49: Glucometer 137H 09/01/22 05:30: White Blood Count 6.3, Red Blood Count 3.82, Hemoglobin 10.5L, Hematocrit 33L, Mean Corpuscular Volume 87, Mean Corpuscular Hemoglobin 28, Mean Corpuscular Hemoglobin Concent 31L, Red Cell Distribution Width 14.7H, Platelet Count 148, Mean Platelet Volume 10.0, Immature Granulocyte % (Auto) 1, Neutrophils (%) (A uto) 70, Lymphocytes (%) (Auto) 16, Monocytes (%) (Auto) 11, Eosinophils (%) (Auto) 3, Basophils (%) (Auto) 0, Neutrophils # (Auto) 4.4, Lymphocytes # (Auto) 1.0, Monocytes # (Auto) 0.7, Eosinophils # (Auto) 0.2, Basophils # (Auto) 0.0, Immature Granulocyte # (Auto) 0.0, Sodium Level 137, Potassium Level 3.7, Chloride Level 102, Carbon Dioxide Level 25, Anion Gap 10, Blood Urea Nitrogen 9, Creatinine 0.62, Estimat Glomerular Filtration Rate 93, BUN/Creatinine Ratio 15, Glucose Level 131H, Calcium Level 8.6, Corrected Calcium 9.5, Total Bilirubin 0.3, Aspartate Amino Transf (AST/SGOT) 13, Alanine Aminotransferase (ALT/SGPT) 11, Alkaline Phosphatase 98, Total Protein 6.2L, Albumin 2.9L 09/01/22 05:48: Glucometer 132H Microbiology 08/28/22 Blood Culture - Final, Complete Proteus mirabilis 08/28/22 Urine Culture - Preliminary, Resulted Proteus mirabilis Pseudomonas aeruginosa Susceptibility To Follow Home Meds Active Cefdinir 300 Mg Capsule 300 Mg PO BID Hiprex (Methenamine Hippurate) 1 Gram Tablet 1 Gm PO BID 5 Days hold for 5 days Macrodantin (Nitrofurantoin Macrocrystal) 100 Mg Capsule 100 Mg PO DAILY 5 Days hold for 5 days Reported Ibuprofen 200 Mg Tablet 600 Mg PO Q8H PRN Clonazepam 0.5 Mg Tablet 0.5 Mg PO BID Olanzapine 5 Mg Tablet 5 Mg PO TID Metoprolol Tartrate 25 Mg Tablet 25 Mg PO BID HOLD MED FOR SP <80/50 OR PULSE <50 Lamotrigine 25 Mg Tablet 50 Mg PO BID TAKES 2 (25MG) TABS Cranberry (Cranberry Fruit) 450 Mg Tablet 450 Mg PO BID Acidophilus Lactobacilli (Lactobacillus Acidophilus) 500 Million Cell Capsule 1 Each PO BID Vitamin C (Ascorbate Calcium) 500 Mg Tablet 500 Mg PO DAILY Mysoline (Primidone) 50 Mg Tablet 50 Mg PO DAILY Mysoline (Primidone) 50 Mg Tablet 25 Mg PO 1800 TAKES OF A 50MG TAB Bisacodyl 5 Mg Tablet.dr 10 Mg PO MO,WE,FR @HS TAKES 2 (5MG) TABS Ibuprofen 200 Mg Tablet 600 Mg PO 1800 Acetaminophen 325 Mg Tablet 650 Mg PO Q6H PRN Milk of Magnesia (Magnesium Hydroxide) 400 Mg/5 Ml Oral.susp 30 Mg PO DAILY PRN Mirtazapine 15 Mg Tablet 15 Mg PO HS Ativan (Lorazepam) 1 Mg Tablet 1 Mg PO UD PRN GIVES ONCE MONTHLY ON THE WITH CATH CHANGES Aspirin 81 Mg Tab.chew 81 Mg PO DAILY Docusate Sodium 100 Mg Capsule 100 Mg PO BID Assessment/Pt Instructions PCP for half-way rounds to evaluate candidacy for hospice Discharge Planning: <30 minutes discharge planning Discharge Instructions Discharge Diet: No Restrictions Discharge Physical Examination Vital Signs Vital Signs Date Time Temp Pulse Resp B/P (MAP) Pulse Ox O2 Delivery O2 Flow Rate FiO2 09/01/22 08:40 Room Air 09/01/22 07:27 37.1 88 21 137/79 (98) 94 09/01/22 00:00 2.00 08/31/22 14:29 3 General Appearance: No Apparent Distress, WD/WN, Chronically ill Respiratory: Lungs Clear Cardiovascular: Regular Rate, Rhythm Neurologic/Psychiatric: Alert, Disoriented Allergies: Coded Allergies: lithium (Unverified Allergy, Mild, 01/22/10) quetiapine (Unverified Allergy, Mild, 01/22/10) Discharge Summary Date of Admission Aug 28, 2022 at 21:07 Date of Discharge Discharge Date: Sep 01, 2022 Admission Diagnosis Assessment: AMS UTI resistant organism presumed Declined status [place] patient Plan: IV abx Supportive care Discharge Diagnosis Assessment: AMS UTI resistant organism presumed-Pseudomonas on prelim maintained empirically on Cefepime Declined status [place] patient Plan: Cefepime [facility] DO Sep 01, 2022 11:00
[2022-09-01 12:31] VITALS: BP 123/81
[2022-09-01 12:45] VITALS: BP 123/81
--- NOTE | 2022-09-01 12:51 | Progress Note ---
PACHECO HUTSON 09/01/22 1251: Progress Note CC: Altered Mental Status Subjective/Last Exam: Patient is sitting comfortably in chair eating breakfast. Pt states that she has been experiencing mild discomfort when sitting in the bed and wearing leg compression, but otherwise has no complaints. Pt denies any abd pain, nausea, v omiting, and CP. Pt is stable and will be transferred to hospice upon discharge. Hospital Course: 76yo F with h/o dementia, arthritis, HLD, HTN, GERD, NIDDM, and suprapubic catheter placement for chronic incontinence/UTI presented from [place] on 08/29 for altered mental status and somnolence that started 1 day prior. Pt was admitted for AMS. Pt had a CXR showing heart size to be in the upper limits of normal with mild central venous congestion, which was unchanged from previous studies. Few scatter alveolar infiltrates were seen in the lower lobes but there was no significant consolidations noted. Pt had a CT head that was negative for acute intracranial hemorrhage or evidence of acute territorial ischemia. Workup found Proteus Mirabilis and Pseudomonas Aeruginosa bacteria in the pt's urine and pt was started on IV Cefepime and oral Cefedinir. Pt is stable and will be discharged to hospice. NEGAR TRACY DO 09/02/22 0520: Supervisory-Addendum Brief Verification & Attestation Participated in pt care: history, MDM, physical Personally performed: exam, history, MDM, supervision of care Care discussed with: Medical Student Procedures: n/a Results interpretation: Verified all documentation Verification and Attestation of Medical Student E/M Service A medical student performed and documented this service in my presence. I reviewed and verified all information documented by the medical student and made modifications to such information, when appropriate. I personally performed the physical exam and medical decision making. Negar Tracy Sep 02, 2022,05:20 PACHE[facility] HUTSON Sep 01, 2022 12:51 NEGAR TRACY DO Sep 02, 2022 05:20
[2022-09-01] MEDS ORDERED: CEFDINIR 300 MG (OMNICEF) CAP PO SCH (21:00)
--- NOTE | 2022-09-03 14:55 | Physician Query Clarification ---
PQ-Intro New Diagnosis Admission/Discharge Admission Date: Aug 28, 2022 at 21:07 Discharge Date: Sep 01, 2022 at 12:45 Dr. Dennis, The medical record reflects the following clinical scenario: History/Risk Factors: UTI chronic indwelling cath Clinical Findings: T 36.3, P 97, R 30, WBC 12.1, Lactic 0.71 Treatment: IV Cefepime Question: What condition best reflects the above clinical scenario? Please document a response in the Progress Noter or Discharge Summary. 1. Sepsis d/t CAUTI 2. CAUTI only. No sepsis 3. Other, with explanation of the clinical findings. 4. Clinically undetermined, no explanation for the clinical findings. PHYSICIAN RESPONSE What condition reflects above: 1 In responding to this query, please exercise your independent professional judgment. The purpose of this communication is to more accurately reflect the complexity of your patients condition. The fact that a question is asked does not imply that any particular answer is desired or expected. Thank you for your timely response to this clarification. Requestors name: Saleem THIS PHYSICIAN QUERY FORM IS A PERMANENT PART OF THE MEDICAL RECORD SALEEM SALAS Sep 03, 2022 14:55 [facility] DENNIS DO Sep 03, 2022 15:41
== END 2022-09-01 12:45 | disposition hospice, inpatient (51) | DRG 698 ==
LOC: EDUNIT# 19:51 → ER 19:52 → 4TH 21:07
PROVIDERS: ADMIT Family Medicine; ATTEND Internal Medicine
DX: T83.511A Infection and inflammatory reaction due to indwelling urethral catheter, initial encounter (principal); A41.9 Sepsis, unspecified organism; E87.1 Hypo-osmolality and hyponatremia; N17.9 Acute kidney failure, unspecified; Z16.30 Resistance to unspecified antimicrobial drugs; N39.0 Urinary tract infection, site not specified; E86.0 Dehydration; Z66 Do not resuscitate; E11.9 Type 2 diabetes mellitus without complications; R33.9 Retention of urine, unspecified; R32 Unspecified urinary incontinence; E78.00 Pure hypercholesterolemia, unspecified; I10 Essential (primary) hypertension; F03.90 Unspecified dementia, unspecified severity, without behavioral disturbance, psychotic disturbance, mood disturbance, and anxiety; K21.9 Gastro-esophageal reflux disease without esophagitis; H35.30 Unspecified macular degeneration; F31.9 Bipolar disorder, unspecified; F20.9 Schizophrenia, unspecified; B96.4 Proteus (mirabilis) (morganii) as the cause of diseases classified elsewhere; B96.5 Pseudomonas (aeruginosa) (mallei) (pseudomallei) as the cause of diseases classified elsewhere; Z99.3 Dependence on wheelchair; Z79.82 Long term (current) use of aspirin; Z88.8 Allergy status to other drugs, medicaments and biological substances
CPT/HCPCS: 36415; 70450; 71045; 80048; 80053; 80306; 80320; 81000; 82805; 82947; 83605; 83880; 85007; 85025; 85027; 85610; 85730; 87040; 87077; 87088; 87186; 94640; 94660; 94760; 96361; 96365